=== PATIENT | female | born 1975 | race African-American/Black ===

== ENCOUNTER → 2016-11-15 | Outpatient (CLI) | payer BC, MEDICARE ==
[~2016-11-15] MED LIST: ASP81TEC; ATOR40TA PO; BENA1TAB2 PO; CIPRO PO; HYDROCODONE PO; INSASP10V SQ; INSU100V6 SQ; IRB150T; LISI10TA PO; METR500T PO; SIMV40TA2 PO; SLMFT1E; VYTORIN
--- OUTSIDE RECORDS SUMMARY | 2016-11-15 15:14 | XMS REPORT | Continuity of Care Document ---
Author Author [facility] Organization [facility] Address Unknown Phone Unavailable Allergies Active Description Code Type Severity Reaction Onset Reported/Identified Relationship to Patient Clinical Status Yes NKANo Known Allergies NKA Miscellaneous Allergy Unknown N/ A 04/22/2007 Medications Problems Date Dx Coded Attending Type Code Diagnosis Diagnosed By 08/06/2009 Ot 250.93 08/06/2009 Ot 272.0 08/06/2009 Ot 305.1 08/06/2009 Ot 401.1 08/06/2009 Ot 593.9 11/23/2009 Ot 250.93 11/23/2009 Ot 272.0 11/23/2009 Ot 401.1 11/23/2009 Ot 593.9 11/23/2009 Ot 791.0 10/16/2010 Ot 250.00 10/16/2010 Ot 566 10/16/2010 Ot V58.67 08/15/2013 FELICITY MOORE, VIRIDIANA Davison Ot 250.80 08/15/2013 FELICITY MOORE, VIRIDIANA Davison Ot V58.67 07/15/2014 IRWIN HILARIO APRN Ot 250.81 08/07/2014 Ot 250.93 08/07/2014 Ot 272.0 08/07/2014 Ot 401.1 08/07/2014 Ot 682.9 08/07/2014 Ot 791.0 08/07/2014 Ot V76.12 08/07/2014 Ot 566 08/07/2014 Ot V72.63 08/07/2014 Ot V74.8 10/17/2014 Ot 250.93 10/17/2014 Ot 272.0 10/17/2014 Ot 401.1 10/17/2014 Ot 682.9 10/17/2014 Ot 791.0 10/17/2014 Ot V76.12 10/17/2014 Ot 566 10/17/2014 Ot V72.63 10/17/2014 Ot V74.8 03/01/2015 Ot 250.93 03/01/2015 Ot 272.0 03/01/2015 Ot 401.1 03/01/2015 Ot 682.9 03/01/2015 Ot 791.0 03/01/2015 Ot V76.12 03/01/2015 Ot 566 03/01/2015 Ot V72.63 03/01/2015 Ot V74.8 Procedures Results Encounters ACCT No. Visit Date/Time Discharge Status Pt. Type Provider Facility Loc./Unit Complaint [id number] 07/15/2014 21:02:00 2013 22:30:00 DIS Emergency IRWIN HILARIO APRN [facility] ER [id number] 08/15/2013 02:39:00 2012 03:52:00 DIS Emergency VIRIDIANA BLEVINS MD [facility] ER [id number] 10/16/2010 05:38:00 Document Registration [id number] 10/15/2010 15:04:00 Document Registration [id number] 12/05/2009 10:47:00 Document Registration [id number] 11/27/2009 06:56:00 Document Registration [id number] 08/25/2009 07:05:00 Document Registration [id number] 05/08/2009 07:04:00 Document Registration
--- NOTE | 2016-11-20 11:07 | Diagnostic Imaging Report ---
Bilateral screening mammogram The current study was also evaluated with a Computer Aided Detection (CAD) system. INDICATION: Screening. No current complaints stated on the questionnaire. COMPARISON: 12/05/2009. FINDINGS: The breasts are composed of heterogeneously dense parenchyma which may decrease mammographic sensitivity. There is an oval asymmetry along the upper aspect of the left MLO view. The right breast demonstrate no focal mass. Overall when compared to 2010 exam an overall change in the appearance of the breasts could be related to decreased weight and decreased fat tissue in the breasts. This is a symmetric process. IMPRESSION: Focal compression view and ultrasound evaluation for asymmetry along the upper aspect of the left breast is recommended. ACR BI-RADS Category 0: Incomplete. (Needs additional imaging evaluation). Result letter will be mailed to the patient. Note: At least 10% of breast cancer is not imaged by mammography. Dictated by: Dictated on workstation # [id number]
== END ==
LOC: RAD 15:10
PROVIDERS: ATTEND Internal Medicine
DX: Z12.31 Encounter for screening mammogram for malignant neoplasm of breast (principal)
CPT/HCPCS: 77067

== ENCOUNTER → 2016-11-28 | Outpatient (CLI) | payer BC, MEDICARE ==
--- OUTSIDE RECORDS SUMMARY | 2016-11-28 07:50 | XMS REPORT | Continuity of Care Document ---
Author Author [facility] Organization [facility] Address Unknown Phone Unavailable Allergies Active [...] 10/16/2010 Ot 566 10/16/2010 Ot V58.67 08/15/2013 VIRIDIANA BLEVINS MD Ot 250.80 DIAB W OTH SPEC MANIFEST, TYPE II OR UNS 08/15/2013 VIRIDIANA BLEVINS MD Ot V58.67 LONG-TERM (CURRENT) USE OF INSULIN 07/15/2014 IRWIN HILARIO APRN Ot 250.81 DIAB W OTH SPEC MANIFEST, TYPE I [JUVENI 08/07/2014 Ot 250.93 08/07/2014 Ot 272.0 08/07/2014 [...] 566 03/01/2015 Ot V72.63 03/01/2015 Ot V74.8 11/19/2016 EDGAR BLEVINS MD Ot Z12.31 ENCNTR SCREEN MAMMOGRAM FOR MALIGNANT NE 11/19/2016 EDGAR BLEVINS MD Ot Z12.31 ENCNTR SCREEN MAMMOGRAM FOR MALIGNANT NE 11/21/2016 EDGAR BLEVINS MD Ot Z12.31 ENCNTR SCREEN MAMMOGRAM FOR MALIGNANT NE 11/21/2016 EDGAR BLEVINS MD Ot Z12.31 ENCNTR SCREEN MAMMOGRAM FOR MALIGNANT NE 11/21/2016 EDGAR BLEVINS MD Ot Z12.31 ENCNTR SCREEN MAMMOGRAM FOR MALIGNANT NE 11/22/2016 EDGAR BLEVINS MD Ot Z12.31 ENCNTR SCREEN MAMMOGRAM FOR MALIGNANT NE Procedures Results Encounters ACCT No. Visit Date/Time Discharge Status Pt. Type Provider Facility Loc./Unit Complaint [id number] 07/15/2014 21:02:00 2013 22:30:00 DIS Emergency IRWIN HILARIO APRN [facility] ER LOW BLOOD SUGAR [id number] 08/15/2013 02:39:00 2012 03:52:00 DIS Emergency VIRIDIANA BLEVINS MD [facility] ER LOW BLOOD SUGAR [id number] 11/28/2016 07:47:00 ACT Outpatient EDGAR BLEVINS MD [facility] RAD ABNORMAL MAMMO [id number] 11/15/2016 15:10:00 ACT Outpatient EDGAR BLEVINS MD [facility] RAD SCREENING [id number] 10/16/2010 05:38:00 Document Registration [id number] 10/15/2010 15:04:00 Document Registration [id number] 12/05/2009 10:47:00 Document Registration [id number] 11/27/2009 06:56:00 Document Registration [id number] 08/25/2009 07:05:00 Document Registration [id number] 05/08/2009 07:04:00 Document Registration
--- NOTE | 2016-11-28 21:28 | Diagnostic Imaging Report ---
INDICATION: Abnormal mammogram. EXAMINATION: Ultrasound of the left breast. FINDINGS: The screening mammogram performed on 11/15/16 suggested a small rounded asymmetry in the superior aspect of the breast. This seemed to persist on the diagnostic mammogram performed earlier today. On this exam, there is a 0.6 x 0.5 x 0.6 cm well-circumscribed avascular hypoechoic lesion with some through transmission in the 2 o'clock position of the left breast. This would correspond to the density seen on the mammogram. There are a few internal echoes present and I suspect that this is a small cyst which has been slightly complicated by infection and/or hemorrhage. There are no solid lesions to suggest malignancy. IMPRESSION: There is a small slightly complicated cyst in the 2 o'clock position of the left breast. This would correspond to the finding of the mammogram. This suspected cyst is most likely benign but a six-month followup exam would be recommended for continued evaluation. ACR BI-RADS Category 3: Probably benign findings. Result letter will be mailed to the patient. Note: At least 10% of breast cancer is not imaged by mammography. Dictated by: Dictated on workstation # [id number]
--- NOTE | 2016-11-28 21:53 | Diagnostic Imaging Report ---
INDICATION: Abnormal screening mammogram. EXAMINATION: Left breast digital diagnostic mammogram with CAD. The current study was also evaluated with a Computer Aided Detection (CAD) system. FINDINGS: The screening mammogram performed 11/15/16 noted a small rounded asymmetry in the superior aspect of the left breast. That density is not as conspicuous on the compression view but seems to persist on the MLO view. I would recommend that ultrasound of the left breast be performed for further study. IMPRESSION: Ultrasound would be recommended for further evaluation of the small rounded density in the superior aspect of the left breast. ACR BI-RADS Category 0: Incomplete. (Needs additional imaging evaluation). Result letter will be mailed to the patient. Note: At least 10% of breast cancer is not imaged by mammography. Dictated by: Dictated on workstation # [id number]
== END ==
LOC: RAD 07:47
PROVIDERS: ATTEND Internal Medicine
DX: R92.8 Other abnormal and inconclusive findings on diagnostic imaging of breast (principal)
CPT/HCPCS: 76642

== ENCOUNTER → 2017-04-08 | Outpatient (CLI) | payer BC, MEDICARE ==
[~2017-04-08] MED LIST changes: +AMLO10TA2 PO; +INSU100V16 SQ; +METO-395 PO; +SEVE800T7 PO
== END ==
LOC: CARD 08:49
PROVIDERS: ATTEND Internal Medicine Cardiovascular Disease
DX: E78.2 Mixed hyperlipidemia (principal); I12.0 Hypertensive chronic kidney disease with stage 5 chronic kidney disease or end stage renal disease; N18.6 End stage renal disease; D63.8 Anemia in other chronic diseases classified elsewhere
CPT/HCPCS: 93306

== ENCOUNTER → 2017-04-29 | Outpatient (CLI) | payer BC, MEDICARE ==
[~2017-04-29] MED LIST changes: -AMLO10TA2 PO; +CATHETER FLUSH 10 ML SYR IV PRN; -INSU100V16 SQ; -METO-395 PO; +REGADENOSON 0.4 MG/5 ML SYR (LEXISCAN) IV ONE; -SEVE800T7 PO
[2017-04-29 13:11] VITALS: BP 143/74
--- NOTE | 2017-04-30 07:04 | STRESS TEST ---
DATE OF SERVICE: 04/29/2017 RESTING AND POST-REGADENOSON TECHNETIUM-[address] IMAGING ORDERING PHYSICIAN: Dr. Stewart. PRIMARY PHYSICIAN: Dr. Quintero. CLINICAL DIAGNOSIS: 372.83. Baseline images were carried out after injection of 10.5 mCi of technetium-99 tetrofosmin. This was followed by 0.4 mg regadenoson and 28.5 mCi of technetium-99 tetrofosmin for stress imaging. The electrocardiogram showed sinus rhythm at baseline and it did not change significantly with regadenoson infusion. The patient tolerated the procedure well. Review of images at rest and following stress did not indicate any significant perfusion defects consistent with significant myocardial ischemia or infarction. Gated images show normal global left ventricular systolic function with normal regional wall motion. Left ventricular ejection fraction is calculated to be 71%. Left ventricular end-diastolic volume is 94 mL. TID is absent (0.97). CONCLUSIONS: 1. No evidence of any significant myocardial ischemia or infarction on this study. 2. Normal regional wall motion. 3. Normal global left ventricular systolic function with a calculated ejection fraction of 71%. Job ID: [id number] DocumentID: [id number] Dictated Date: 04/29/2017 14:58:43 Advisory Software Engineer Date: 04/30/2017 02:05:46 Dictated By: ELISABETH MACHUCA MD, MA, FACP, FACC,
== END ==
LOC: CARD 11:34
PROVIDERS: ATTEND Specialist
DX: Z01.810 Encounter for preprocedural cardiovascular examination (principal); N18.6 End stage renal disease
CPT/HCPCS: 78452; 93017

== ENCOUNTER 2017-05-15 13:12 | Day surgery (SDC) | payer BC, MEDICARE ==
[2017-05-15] VITALS (7 sets, daily range): BP systolic 111–140; BP diastolic 73–83
[~2017-05-15] VITALS: Ht 165.1 cm; Wt 80.7 kg
[~2017-05-15 13:12] MED LIST changes: -CATHETER FLUSH 10 ML SYR IV PRN; -REGADENOSON 0.4 MG/5 ML SYR (LEXISCAN) IV ONE
[2017-05-15] MEDS ORDERED: NS IV 1000 ML 1,000 ML ONE (13:16)
[2017-05-15] MEDS ORDERED: HEParin (CATH LAB) 2,000 ML IV ONE (13:16)
--- OUTSIDE RECORDS SUMMARY | 2017-05-15 13:16 | XMS REPORT | Continuity of Care Document ---
Author Author [employer] Organization [facility] Address Unknown Phone Unavailable Care Team Providers Care Manager Print Name Role Phone [employer] Unavailable Unavailable Problems Medications Allergies, Adverse Reactions, Alerts Immunizations Results Vital Signs Encounters Location Location Details Encounter Type Encounter Number Reason For Visit Attending Provider ADM Date DC Date Status Source O Active [facility] Procedures Plan of Care Social History Assessment and Plan Family History Value Date Source Advance Directives Order Name Results Value Date Source
--- OUTSIDE RECORDS SUMMARY | 2017-05-15 13:17 | XMS REPORT | Clinical Summary ---
Author Author [facility] Organization [facility] Address Unknown Phone Unavailable Care Team Providers Care Job Site Supervisor Name Role Phone PCP Unavailable Source Comments Some departments are not documenting in the electronic medical record. If you do not see the information that you expected, contact Release of Information in the Health Information Management department at [phone] for further assistance in locating additional records.[facility] Allergies No Known Allergies Current Medications Prescription Sig. Disp. Refills Start End Date Status Date amLODIPine (NORVASC) 10 Take 10 mg by mouth Active mg tablet daily. Sevelamer Carbonate Take 4 tablets with meals Active (RENVELA) 800 mg tab and 2 with snacks insulin glargine (LANTUS Inject 15 Units under the Active SOLOSTAR) 100 unit/mL (3 skin at bedtime daily. mL) injection PEN metoprolol XL (TOPROL XL) Take 100 mg by mouth Active 100 mg extended release daily. tablet insulin aspart (NOVOLOG Inject 10 Units under the Active FLEXPEN) 100 unit/mL skin three times daily injection PEN with meals. With sliding scale epoetin beta, methoxy peg Inject 100 mcg to area(s) Active (MIRCERA) 100 mcg/0.3 mL as directed every 14 syrg days. At dialysis iron sucrose (VENOFER) 50 Administer 50 mg through Active mg iron/2.5 mL soln vein every 7 days. At dialysis calcitriol (ROCALTROL) Take 0.5 mcg by mouth Active 0.5 mcg capsule three times weekly. MWF at dialysis acetaminophen (TYLENOL) Take 500 mg by mouth Active 500 mg tablet every 6 hours as needed for Pain. Max of 4,000 mg of acetaminophen in 24 hours. prednisolone acetate Apply 1 Drop to left eye Active (PRED FORTE) 1 % as directed four times ophthalmic suspension daily. apraclonidine (IOPIDINE) Apply 1 Drop to left eye Active 0.5 % ophthalmic solution as directed four times daily. homatropine 5 % Apply 1 Drop to left eye Active ophthalmic solution as directed at bedtime daily. dorzolamide-timolol(+) Apply 1 Drop to left eye Active (COSOPT) 2-0.5 % as directed twice daily. ophthalmic solution Active Problems Problem Noted Date ESRD (end stage renal disease) (FORM[facility]) 03/30/2017 Encounters Date Type Specialty Care Team Description 05/08/2017 Telephone Transplant Surgery Yeny Vivas RN Committee Review 05/06/2017 Telephone Transplant Surgery Yeny Vivas RN Kidney Evaluation 05/06/2017 Telephone Transplant Surgery Yeny Vivas RN Financial/Insurance Questions 05/06/2017 Telephone Transplant Surgery Yeny Vivas RN Financial/Insurance Questions 04/30/2017 Telephone Transplant Surgery Yeny Vivas RN Kidney Evaluation 04/30/2017 Documentation Transplant Surgery Yeny Vivas RN 04/24/2017 Documentation Transplant Surgery Abena Weeks MA 04/23/2017 Telephone Transplant Surgery Yeny Vivas RN Financial/Insurance Questions 04/22/2017 Telephone Transplant Surgery Yeny Vivas RN Kidney Evaluation 04/21/2017 Telephone Transplant Surgery Solange Benavides Financial/ Insurance Questions (BENEFITS / INSRUANCE INFORMATION ) 04/21/2017 Telephone Transplant Surgery Solange Benavides Financial/ Insurance Questions (BENEFITS / INSURANCE INFORMATION ) 04/16/2017 Telephone Transplant Surgery Solange Benavides Financial/ Insurance Questions (BENEFITS / INSURANCE INFORMATION ) 04/15/2017 Documentation Transplant Surgery Yeny Vivas RN 04/07/2017 Documentation Transplant Surgery Abena Weeks MA 04/07/2017 Documentation Transplant Surgery Abena Weeks MA 04/07/2017 Documentation Transplant Surgery Abena Weeks MA 03/31/2017 Telephone Transplant Surgery Yeny Vivas RN Kidney Evaluation 03/20/2017 Documentation Transplant Surgery Abena Weeks MA 03/05/2017 Documentation Transplant Surgery Melissa Kinsey 03/04/2017 [facility] Radiology Efrain Vargas MD Encounter 03/04/2017 [facility] Efrain Millan MD Encounter 03/04/2017 [facility] Milly Stewart MD Encounter for other Encounter preprocedural examination 03/04/2017 Transplant Transplant Surgery Evgeny Kathleen MD Pre- transplant evaluation Evaluation Sher Sumner MD for kidney transplant (Primary Dx) 03/04/2017 Office Visit Transplant Surgery Milly Stewart MD Pre- transplant evaluation for end stage renal disease (Primary Dx);Pre-kidney transplant, listed;Screening for human immunodeficiency virus;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);Coagulation defect (HCC);ESRD (end stage renal disease) (HCC) 03/03/2017 Documentation Transplant Surgery Melissa Kinsey 02/25/2017 Telephone Transplant Surgery Helen Eastman MA Appointment Question from Last 3 Months Social History Tobacco Use Types Packs/Day Years Used Date Former Smoker Cigarettes Alcohol Use Drinks/Week oz/Week Comments No 0 Standard 0.0 drinks or equivalent Sex Assigned at Date Recorded Not on file Last Filed Vital Signs Vital Sign Reading Time Taken Blood Pressure 107/57 03/04/2017 9:23 AM CDT Pulse 54 03/04/2017 9:23 AM CDT Temperature 36.4 C (97.5 F) 03/04/2017 9:22 AM CDT Respiratory Rate - - Oxygen Saturation 100% 03/04/2017 9:22 AM CDT Inhaled Oxygen - - Concentration Weight 77.7 kg (171 lb 3.2 oz) 03/04/2017 9:22 AM CDT Height 162.6 cm (5' 4") 03/04/2017 9:22 AM CDT Body Mass Index 29.39 03/04/2017 9:22 AM CDT Plan of Treatment Health Maintenance Due Date Last Done Comments PHYSICAL (COMPREHENSIVE) 1983 EXAM PERTUSSIS VACCINE 1987 TETANUS VACCINE 1993 DILATED EYE EXAM 1994 FOOT EXAM 1994 MICROALBUMIN 1994 PNEUMONIA VACCINE (DM) 1994 CERVICAL CANCER SCREENING 2006 BREAST CANCER SCREENING 2016 INFLUENZA VACCINE 05/23/2017 HBA1C 09/03/2017 03/04/2017 Results * CHEST 2 VIEWS (03/04/2017 1:54 PM) Specimen Performing Laboratory [facility] RESULTS Impressions No radiographic evidence of acute cardiopulmonary disease. Finalized by Cassandra Murray M.D. on 03/04/2017 1:59 PM. Dictated by Cassandra Murray M.D. on 03/04/2017 1:58 PM. Narrative CHEST 2 VIEWS Indication: pre-kidney/pancreas transplant evaluation. Comparison: There are no prior studies for direct comparison. Findings: The heart and pulmonary vasculature are unremarkable. The lungs appear well- aerated. No consolidative infiltrate, pleural effusion or pneumothorax is identified. The visualized osseous structures are unremarkable. Procedure Note Interface, Radiant Results - 03/04/2017 2:02 PM CDT CHEST 2 VIEWS Indication: pre-kidney/pancreas transplant evaluation. Comparison: There are no prior studies for direct comparison. Findings: The heart and pulmonary vasculature are unremarkable. The lungs appear well- aerated. No consolidative infiltrate, pleural effusion or pneumothorax is identified. The visualized osseous structures are unremarkable. IMPRESSION No radiographic evidence of acute cardiopulmonary disease. Finalized by Cassandra Murray M.D. on 03/04/2017 1:59 PM. Dictated by Cassandra Murray M.D. on 03/04/2017 1:58 PM. * CT ABD/PELV WO CONTRAST (03/04/2017 1:45 PM) Specimen Performing Laboratory [facility] RESULTS Impressions 1. No aortoiliac aneurysm or significant calcification. Soft plaque and vessel patency are not assessed in the absence of IV contrast. 2. Punctate nonobstructing right renal calculi. Approved by Natalie Sandhu M.D. on 03/04/2017 2:17 PM By my electronic signature, I attest that I have personally reviewed the images for this examination and formulated the interpretations and opinions expressed in this report Finalized by Vinnie Kidd M.D. on 03/04/2017 4:37 PM. Dictated by Natalie Sandhu M.D. on 03/04/2017 2:[address] ABDOMEN AND PELVIS Clinical Indication: Pre- kidney/pancreas transplant evaluation Technique: Multiple contiguous axial CT images were obtained through the abdomen and pelvis without IV contrast. Post processing coronal and sagittal reconstruction images were made from the axial images. IV contrast: None. Bowel contrast:None Comparison: None FINDINGS: Limited evaluation of the viscera and vasculature in the absence of IV contrast. Lower Thorax: Heart size is upper limits of normal. There is low-density of the cardiac blood pool relative to the myocardium suggesting anemia. Liver and Biliary system: Normal sized liver. The gallbladder is contracted. No radiopaque gallbladder calculi. Spleen: Unremarkable. Adrenal Glands and Kidneys: Mild nonspecific thickening of the left adrenal gland. Right adrenal gland is unremarkable. Mild bilateral ak chin renal atrophy. No hydronephrosis. Few punctate nonobstructing right renal calculi. Pancreas and Retroperitoneum: The unopacified pancreas is grossly unremarkable. Scattered upper normal retroperitoneal lymph nodes. Aorta and Major Vessels: Normal caliber abdominal aorta. No significant aortic or common iliac artery calcification. Minimal peripheral calcification in the distal left external iliac artery. Vessel patency and soft plaque are not assessed in the absence of contrast. There is mild diffuse calcification of medium-sized arteries in the abdomen and pelvis. Bowel, Mesentery, and Peritoneal space: Loops of large and small bowel are normal caliber. Mild mesenteric congestion. No ascites, free air, or intraperitoneal fluid collection. Pelvis: The partially filled urinary bladder is grossly unremarkable. The uterus is normal in size. Abdominal wall and Osseous Structures: No aggressive osseous lesion. Procedure Note Interface, Radiant Results - 03/04/2017 4:[address] ABDOMEN AND PELVIS Clinical Indication: Pre- kidney/pancreas transplant evaluation Technique: Multiple contiguous axial CT images were obtained through the abdomen and pelvis without IV contrast. Post processing coronal and sagittal reconstruction images were made from the axial images. IV contrast: None. Bowel contrast: None Comparison: None FINDINGS: Limited evaluation of the viscera and vasculature in the absence of IV contrast. Lower Thorax: Heart size is upper limits of normal. There is low-density of the cardiac blood pool relative to the myocardium suggesting anemia. Liver and Biliary system: Normal sized liver. The gallbladder is contracted. No radiopaque gallbladder calculi. Spleen: Unremarkable. Adrenal Glands and Kidneys: Mild nonspecific thickening of the left adrenal gland. Right adrenal gland is unremarkable. Mild bilateral ak chin renal atrophy. No hydronephrosis. Few punctate nonobstructing right renal calculi. Pancreas and Retroperitoneum: The unopacified pancreas is grossly unremarkable. Scattered upper normal retroperitoneal lymph nodes. Aorta and Major Vessels: Normal caliber abdominal aorta. No significant aortic or common iliac artery calcification. Minimal peripheral calcification in the distal left external iliac artery. Vessel patency and soft plaque are not assessed in the absence of contrast. There is mild diffuse calcification of medium-sized arteries in the abdomen and pelvis. Bowel, Mesentery, and Peritoneal space: Loops of large and small bowel are normal caliber. Mild mesenteric congestion. No ascites, free air, or intraperitoneal fluid collection. Pelvis: The partially filled urinary bladder is grossly unremarkable. The uterus is normal in size. Abdominal wall and Osseous Structures: No aggressive osseous lesion. IMPRESSION 1. No aortoiliac aneurysm or significant calcification. Soft plaque and vessel patency are not assessed in the absence of IV contrast. 2. Punctate nonobstructing right renal calculi. Approved by Natalie Sandhu M.D. on 03/04/2017 2:17 PM By my electronic signature, I attest that I have personally reviewed the images for this examination and formulated the interpretations and opinions expressed in this report Finalized by Vinnie Kidd M.D. on 03/04/2017 4:37 PM. Dictated by Natalie Sandhu M.D. on 03/04/2017 2:03 PM. * BLOOD TYPE CONFIRMATION - ORDER ONLY IF REQUESTED BY LAB (03/04/2017 1:02 PM) Component Value Ref Range ABO/RH(D) A POS Specimen Performing Laboratory Blood MAIN LAB [address] [place] [address] * RED TOP TUBE FOR MTN TRANSPLANT (03/04/2017 12:48 PM) Specimen Performing Laboratory Blood REFERENCE LAB * HIV AB SCREEN(1 AND 2) (03/04/2017 12:48 PM) Component Value Ref Range HIV 1 and 2 AG AB Screen NEG NEG-NEG Specimen Performing Laboratory Blood MAIN LAB [address] [place] [address] * SYPHILIS AB SCREEN (03/04/2017 12:48 PM) Component Value Ref Range Syphilis AB, Total NEG NEG-NEG Comment: Negative EIA: Negative results indicate no past or present syphilis infection. Early infection can not be excluded. Specimen Performing Laboratory Blood MAIN LAB [address] [place] [address] * ABO/RH(D) (03/04/2017 12:48 PM) Component Value Ref Range ABO/RH(D) A POS Specimen Performing Laboratory Blood MAIN LAB [address] [place] [address] * URINALYSIS, MICROSCOPIC (03/04/2017 12:48 PM) Component Value Ref Range WBCs,UA 2-10 0 - 2 /HPF RBCs,UA 0-2 0 - 3 /HPF MucousUA TRACE Bacteria,UA FEW (A) NEG-NEG Squamous Epithelial Cells 10-20 0 - 5 Hyaline Cast 5-10 Specimen Performing Laboratory Urine [facility] LAB [address] [place] [address] * URINALYSIS DIPSTICK (03/04/2017 12:48 PM) Component Value Ref Range Color,UA YELLOW Turbidity,UA 1+ (A) CLEAR-CLEAR Specific [place]-Urine 1.019 1.003 - 1.035 pH,UA 6.0 5.0 - 8.0 Protein,UA 3+ (A) NEG-NEG Glucose,UA 1+ (A) NEG-NEG Ketones,UA NEG NEG-NEG Bilirubin,UA NEG NEG-NEG Blood,UA NEG NEG-NEG Urobilinogen,UA NORMAL NORM-NORMAL Nitrite,UA NEG NEG-NEG Leukocytes,UA TRACE (A) NEG-NEG Urine Ascorbic Acid, UA NEG NEG-NEG Specimen Performing Laboratory Urine [facility] LAB [address] [place] [address] * PHENCYCLIDINES-URINE RANDOM (03/04/2017 12:48 PM) Component Value Ref Range Phencyclidine (PCP) NEG NEG-NEG Comment: RESULTS WERE OBTAINED BY IMMUNOASSAY AND ARE PRESUMPTIVE ONLY. POSITIVE INDICATES THE PRESENCE OF SUBSTANCE WITH CHARACTERISTICS SIMILAR TO DRUG-DRUG CLASS OR METABOLITE IN CONC. EQUAL TO OR EXCEEDING VALUES LISTED. PHENCYCLIDINE (PCP) 25 NG/ML Specimen Performing Laboratory Urine [facility] LAB [address] [place] [address] * OPIATES-URINE RANDOM (03/04/2017 12:48 PM) Component Value Ref Range Opiates-Urine NEG NEG-NEG Comment: RESULTS WERE OBTAINED BY IMMUNOASSAY AND ARE PRESUMPTIVE ONLY. POSITIVE INDICATES THE PRESENCE OF SUBSTANCE WITH CHARACTERISTICS SIMILAR TO DRUG-DRUG CLASS OR METABOLITE IN CONC. EQUAL TO OR EXCEEDING VALUES LISTED. OPIATES 200 0 NG/ML Specimen Performing Laboratory Urine [facility] LAB [address] [place] [phone] * COCAINE-URINE RANDOM (03/04/2017 12:48 PM) Component Value Ref Range Cocaine-Urine NEG NEG-NEG Comment: RESULTS WERE OBTAINED BY IMMUNOASSAY AND ARE PRESUMPTIVE ONLY. POSITIVE INDICATES THE PRESENCE OF SUBSTANCE WITH CHARACTERISTICS SIMILAR TO DRUG-DRUG CLASS OR METABOLITE IN CONC. EQUAL TO OR EXCEEDING VALUES LISTED. COCAINE 300 NG/ML Specimen Performing Laboratory Urine [facility] LAB [address] [place] [address] * CANNABINOIDS-URINE RANDOM (03/04/2017 12:48 PM) Component Value Ref Range THC NEG NEG-NEG Comment: RESULTS WERE OBTAINED BY IMMUNOASSAY AND ARE PRESUMPTIVE ONLY. POSITIVE INDICATES THE PRESENCE OF SUBSTANCE WITH CHARACTERISTICS SIMILAR TO DRUG-DRUG CLASS OR METABOLITE IN CONC. EQUAL TO OR EXCEEDING VALUES LISTED. CANNABINOIDS 50 NG/ML Specimen Performing Laboratory Urine [facility] LAB [address] [place] [address] * BENZODIAZEPINES-URINE RANDOM (03/04/2017 12:48 PM) Component Value Ref Range Benzodiazepines NEG NEG-NEG Comment: RESULTS WERE OBTAINED BY IMMUNOASSAY AND ARE PRESUMPTIVE ONLY. POSITIVE INDICATES THE PRESENCE OF SUBSTANCE WITH CHARACTERISTICS SIMILAR TO DRUG-DRUG CLASS OR METABOLITE IN CONC. EQUAL TO OR EXCEEDING VALUES LISTED. BENZODIAZEPINES 200 NG/ML Specimen Performing Laboratory Urine [facility] LAB [address] [place] [address] * BARBITURATES-URINE RANDOM (03/04/2017 12:48 PM) Component Value Ref Range Barbiturates,Urine NEG NEG-NEG Comment: RESULTS WERE OBTAINED BY IMMUNOASSAY AND ARE PRESUMPTIVE ONLY. POSITIVE INDICATES THE PRESENCE OF SUBSTANCE WITH CHARACTERISTICS SIMILAR TO DRUG-DRUG CLASS OR METABOLITE IN CONC. EQUAL TO OR EXCEEDING VALUES LISTED. BARBITURATES 200 NG/ML Specimen Performing Laboratory Urine [address] [address] * AMPHETAMINES-URINE RANDOM (03/04/2017 12:48 PM) Component Value Ref Range Amphetamines NEG NEG-NEG Comment: RESULTS WERE OBTAINED BY IMMUNOASSAY AND ARE PRESUMPTIVE ONLY. POSITIVE INDICATES THE PRESENCE OF SUBSTANCE WITH CHARACTERISTICS SIMILAR TO DRUG-DRUG CLASS OR METABOLITE IN CONC. EQUAL TO OR EXCEEDING VALUES LISTED. AMPHETAMINES 1000 NG/ML Specimen Performing Laboratory Urine [facility] LAB [address] [place] [address] * HSV I/II GLYCOPROTEIN G AB (03/04/2017 12:48 PM) Component Value Ref Range HSV Type 1 IgG POS (A) NEG-NEG HSV Type 2 IgG EQUIVOCAL, PLEASE SUBMIT ANOTHER SPECIMEN IN 4-6 NEG-NEG WEEKS (A) Specimen Performing Laboratory Blood [facility] LAB [address] [place] [address] * HEPATITIS C AB (03/04/2017 12:48 PM) Component Value Ref Range Anti HCV NEG Specimen Performing Laboratory Blood [facility] LAB [address] [place] [address] * HEPATITIS B CORE AB TOT (IGG+IGM) (03/04/2017 12:48 PM) Component Value Ref Range Anti HBc Total NEG Specimen Performing Laboratory Blood MAIN LAB [address] [place] [address] * HEPATITIS B SURFACE AG (03/04/2017 12:48 PM) Component Value Ref Range HBsAg NEG Specimen Performing Laboratory Blood MAIN LAB [address] [place] [address] * HEPATITIS B SURFACE AB (03/04/2017 12:48 PM) Component Value Ref Range Anti HBs >1000.0 mIU/ml Comment: Hepatitis B Surface Antibody Reference Ranges >12.0 Positive 8.0-12.0 Equivocal <8.0 Negative Specimen Performing Laboratory Blood MAIN LAB [address] [place] [address] * ROLAND TURCIOS PANEL(EBV) (03/04/2017 12:48 PM) Component Value Ref Range EBV Capsid IgG POS EBV Nuclear Ag,Ab POS EBV Early Ag,Ab NEG EBV Capsid IgM NEG Specimen Performing Laboratory Blood MAIN LAB [address] [place] [address] * C-PEPTIDE (03/04/2017 12:48 PM) Component Value Ref Range C-Peptide 0.5 (L) Comment: Reference range: 1.1 to 4.4 Unit: ng/mL [facility], [address] [place] [address] Specimen Performing Laboratory Blood REFERENCE LAB * CMV AB IGM (03/04/2017 12:48 PM) Component Value Ref Range CMV, IgM NEG Specimen Performing Laboratory Blood MAIN LAB [address] [place] [address] * CMV AB IGG (03/04/2017 12:48 PM) Component Value Ref Range CMV, IgG POS Specimen Performing Laboratory Blood MAIN LAB [address] [place] [address] * LAVENDER (EDTA) TOP TUBE FOR MTN TRANSPLANT (03/04/2017 12:48 PM) Specimen Performing Laboratory Blood REFERENCE LAB * PROTIME INR (PT) (03/04/2017 12:48 PM) Component Value Ref Range INR 1.0 0.8 - 1.2 Specimen Performing Laboratory Blood MAIN LAB [address] [place] [address] * CBC AND DIFF (03/04/2017 12:48 PM) Component Value Ref Range White Blood Cells 7.6 4.5 - 11.0 K/UL RBC 3.85 (L) 4.0 - 5.0 M/UL Hemoglobin 12.0 12.0 - 15.0 GM/DL Hematocrit 36.3 36 - 45 % MCV 94.1 80 - 100 FL MCH 31.2 26 - 34 PG MCHC 33.1 32.0 - 36.0 G/DL RDW 17.8 (H) 11 - 15 % Platelet Count 326 150 - 400 K/UL MPV 7.6 7 - 11 FL Neutrophils 51 41 - 77 % Lymphocytes 37 24 - 44 % Monocytes 10 4 - 12 % Eosinophils 1 0 - 5 % Basophils 1 0 - 2 % Absolute Neutrophil Count 3.90 1.8 - 7.0 K/UL Absolute Lymph Count 2.80 1.0 - 4.8 K/UL Absolute Monocyte Count 0.80 0 - 0.80 K/UL Absolute Eosinophil Count 0.10 0 - 0.45 K/UL Absolute Basophil Count 0.10 0 - 0.20 K/UL Specimen Performing Laboratory Blood MAIN LAB [address] [place] [address] * PHOSPHORUS (03/04/2017 12:48 PM) Component Value Ref Range Phosphorus 3.6 2.0 - 4.0 MG/DL Specimen Performing Laboratory Blood MAIN LAB [address] [place] [address] * HEMOGLOBIN A1C (03/04/2017 12:48 PM) Component Value Ref Range Hemoglobin A1C 7.2 (H) 4.0 - 6.0 % Comment: The ADA recommends that most patients with type 1 and type 2 diabetes maintain an A1c level <7%. Specimen Performing Laboratory Blood MAIN LAB [address] [place] [address] * COMPREHENSIVE METABOLIC PANEL (03/04/2017 12:48 PM) Component Value Ref Range Sodium 137 137 - 147 MMOL/L Potassium 3.8 3.5 - 5.1 MMOL/L Chloride 92 (L) 98 - 110 MMOL/L Glucose 53 (L) 70 - 100 MG/DL Blood Urea Nitrogen 24 7 - 25 MG/DL Creatinine 8.77 (H) 0.4 - 1.00 MG/DL Calcium 10.1 8.5 - 10.6 MG/DL Total Protein 9.0 (H) 6.0 - 8.0 G/DL Total Bilirubin 0.5 0.3 - 1.2 MG/DL Albumin 4.9 3.5 - 5.0 G/DL Alk Phosphatase 131 (H) 25 - 110 U/L AST (SGOT) 15 7 - 40 U/L CO2 37 (H) 21 - 30 MMOL/L ALT (SGPT) 10 7 - 56 U/L Anion Gap 8 3 - 12 eGFR Non 5 (L) >60 mL/min Comment: The eGFR is not validated for use in drug dosing adjustments. Continue to use estimated creatinine clearance per dosing reference text. Please contact the Clinical Pharmacist for questions. eGFR 6 (L) >60 mL/min Comment: The eGFR is not validated for use in drug dosing adjustments. Continue to use estimated creatinine clearance per dosing reference text. Please contact the Clinical Pharmacist for questions. Specimen Performing Laboratory Blood [facility] [address] [place] [address] from Last 3 Months
--- OUTSIDE RECORDS SUMMARY | 2017-05-15 13:17 | XMS REPORT | Encounter Summary ---
Author Author [facility] Organization [facility] Address Unknown Phone Unavailable Care Team Providers Care Oil Well Gun Perforator Operator Name Role Phone PCP Unavailable Reason for Visit * Reason Comments Committee Review Encounter Details Date Type Department Care Team Description 05/08/2017 Telephone Center Yeny Tovar RN Committee Review Transplantation-Kidney/Pa ncreas [facility] [address] [facility] [place] [address] Social History Tobacco Use Types Packs/Day Years Used Date Former Smoker Cigarettes Alcohol Use Drinks/Week oz/Week Comments No 0 Standard 0.0 drinks or equivalent Sex Assigned at Date Recorded Not on file as of this encounter Functional Status Functional Status Response Date of Assessment Does the patient have a hearing impairment: No 03/04/2017 Does the patient have a visual impairment: Yes 03/04/2017 Does the patient have impaired ambulation: No 03/04/2017 Does the patient have an activity of daily living No 03/04/2017 (ADL) impairment: Does the patient have an instrumental activity of No 03/04/2017 daily living (IADL) impairment: Cognitive Status Response Date of Assessment Does the patient have a cognitive impairment: No 03/04/2017 as of this encounter Plan of Treatment Not on fileas of this encounter Visit Diagnoses Not on filein this encounter
--- OUTSIDE RECORDS SUMMARY | 2017-05-15 13:17 | XMS REPORT | Encounter Summary ---
Author Author [facility] Organization [facility] Address Unknown Phone Unavailable Care Team Providers Care Wedger Name Role Phone PCP Unavailable Reason for Visit * Reason Comments Financial/Insurance Questions Encounter Details Date Type Department Care Team Description 05/06/2017 Telephone Center Yeny Tovar RN Financial/ Insurance Transplantation-Kidney/Pa Questions ncreas [facility] [address] [facility] [place] [address] Social History Tobacco Use Types Packs/Day Years [...]
--- OUTSIDE RECORDS SUMMARY | 2017-05-15 13:17 | XMS REPORT | Encounter Summary ---
Author Author [facility] Organization [facility] Address Unknown Phone Unavailable Care Team Providers Care Timber Poisoner Name Role Phone PCP Unavailable Reason for Visit * Reason Comments Financial/Insurance Questions Encounter Details Date Type Department Care Team Description 05/06/2017 Telephone Center Yeny Tovar RN Financial/ Insurance Transplantation-Kidney/Pa Questions ncreas [facility] [address] [facility] [place] [address] Social History Tobacco Use Types Packs/Day Years [...]
--- OUTSIDE RECORDS SUMMARY | 2017-05-15 13:17 | XMS REPORT | Encounter Summary ---
Author Author [facility] Organization [facility] Address Unknown Phone Unavailable Care Team Providers Care Inspector Ball Points Name Role Phone PCP Unavailable Reason for Visit * Reason Comments Kidney Evaluation Encounter Details Date Type Department Care Team Description 05/06/2017 Telephone Center Yeny Tovar RN Kidney Evaluation [facility] [address] [facility] [place] [address] Social History Tobacco Use Types Packs/Day Years [...]
--- OUTSIDE RECORDS SUMMARY | 2017-05-15 13:18 | XMS REPORT | Encounter Summary ---
Author Author [facility] Organization [facility] Address Unknown Phone Unavailable Care Team Providers Care Jeweler Apprentice Name Role Phone PCP Unavailable Reason for Visit * Reason Comments Financial/Insurance BENEFITS / INSURANCE INFORMATION Questions Encounter Details Date Type Department Care Team Description 04/21/2017 Telephone Center for Solange Benavides Financial/Insurance Transplantation-Liver Questions (BENEFITS / Transplant Hep INSURANCE INFORMATION ) [address] [facility] [place] [address] Social History Tobacco Use Types Packs/Day Years [...]
--- OUTSIDE RECORDS SUMMARY | 2017-05-15 13:18 | XMS REPORT | Encounter Summary ---
Author Author [facility] Organization [facility] Address Unknown Phone Unavailable Care Team Providers Care Veneer Jointer Returner Name Role Phone PCP Unavailable Encounter Details Date Type Department Care Team Description 04/24/2017 Documentation Center for Abena Weeks MA Transplantation-Kidney/Pa ncreas Nep [address] [facility] [place] [address] Social History Tobacco Use Types Packs/Day Years [...] impairment: No 03/04/2017 as of this encounter Progress Notes * Abena Weeks MA - 04/24/2017 10:00 AM CDT Scheduled pts stress test at [facility] 04/29/17 at 1145. LM for pt with appt info. in this encounter Plan of Treatment Not on fileas of this encounter Visit Diagnoses Not on filein this encounter
--- OUTSIDE RECORDS SUMMARY | 2017-05-15 13:18 | XMS REPORT | Encounter Summary ---
Author Author [facility] Organization [facility] Address Unknown Phone Unavailable Care Team Providers Care Unit Secy Name Role Phone PCP Unavailable Reason for Visit * Reason Comments Financial/Insurance BENEFITS / INSURANCE INFORMATION Questions Encounter Details Date Type Department Care Team Description 04/16/2017 Telephone Center for Solange Benavides Financial/Insurance Transplantation-Liver Questions (BENEFITS / Transplant Hep INSURANCE INFORMATION ) [address] [facility] [place] [address] Social History Tobacco Use Types Packs/Day Years [...]
--- OUTSIDE RECORDS SUMMARY | 2017-05-15 13:18 | XMS REPORT | Encounter Summary ---
Author Author [facility] Organization [facility] Address Unknown Phone Unavailable Care Team Providers Care Horticultural Nursery Assistant Name Role Phone PCP Unavailable Encounter Details Date Type Department Care Team Description 04/30/2017 Documentation Center for Yeny Vivas RN Transplantation-Kidney/Pa ncreas Nep [address] [facility] [place], [place] [id number] Social History Tobacco Use Types Packs/Day Years [...] as of this encounter Progress Notes * Yeny Vivas, RN - 04/30/2017 8:54 AM CDT Requested results of stress test and also endo lab results. Will attempt to present next week. in this encounter Plan of Treatment Not on fileas of this encounter Visit Diagnoses Not on filein this encounter
--- OUTSIDE RECORDS SUMMARY | 2017-05-15 13:18 | XMS REPORT | Encounter Summary ---
Author Author [facility] Organization [facility] Address Unknown Phone Unavailable Care Team Providers Care Accounting Supervisor Name Role Phone PCP Unavailable Encounter Details Date Type Department Care Team Description 04/07/2017 Documentation Center for Abena Weeks MA Transplantation-Kidney/Pa ncreas Nep [address] [facility] [place] [address] Social History Tobacco Use Types Packs/Day Years [...] Progress Notes * Abena Weeks MA - 04/07/2017 2:14 PM CDT Spoke with pt, confirmed the following tests scheduled at [facility]: 04/08/17 - echo 04/22/17 - stress test in this encounter Plan of Treatment Not on fileas of this encounter Visit Diagnoses Not on filein this encounter
--- OUTSIDE RECORDS SUMMARY | 2017-05-15 13:18 | XMS REPORT | Encounter Summary ---
Author Author [facility] Organization [facility] Address Unknown Phone Unavailable Care Team Providers Care Photogrammetry Airplane Pilot Name Role Phone PCP Unavailable Reason for Visit * Reason Comments Financial/Insurance BENEFITS / INSRUANCE INFORMATION Questions Encounter Details Date Type Department Care Team Description 04/21/2017 Telephone Center for Solange Benavides Financial/Insurance Transplantation-Liver Questions (BENEFITS / Transplant Hep INSRUANCE INFORMATION ) [address] [facility] [place] [address] Social History Tobacco Use Types Packs/Day Years [...]
--- OUTSIDE RECORDS SUMMARY | 2017-05-15 13:18 | XMS REPORT | Encounter Summary ---
Author Author [facility] Organization [facility] Address Unknown Phone Unavailable Care Team Providers Care Sas Programmer Name Role Phone PCP Unavailable Encounter Details Date Type Department Care Team Description 04/15/2017 Documentation Center for Yeny Vivas RN Transplantation-Kidney/Pa ncreas Nep [address] [facility] [place], [place] [id number] Social History Tobacco Use Types Packs/Day Years [...] Progress Notes * Yeny Vivas, RN - 04/15/2017 8:18 AM CDT Endocrine note reviewed by Dr Stewart. Will present patient after cardiac testing completed. Endo will be doing some follow up testing but not necessary to wait for results to present. in this encounter Plan of Treatment Not on fileas of this encounter Visit Diagnoses Not on filein this encounter
--- OUTSIDE RECORDS SUMMARY | 2017-05-15 13:18 | XMS REPORT | Encounter Summary ---
Author Author [facility] Organization [facility] Address Unknown Phone Unavailable Care Team Providers Care Community Health Nurse Supervisor Name Role Phone PCP Unavailable Encounter Details Date Type Department Care Team Description 03/04/2017 Hospital [facility] Efrain Vargas MD Encounter Hospital Radiology [address] [place] [address] OFFICE BLDG [phone] [address] [place] [address] Social History Tobacco Use Types Packs/Day Years [...] impairment: No 03/04/2017 as of this encounter Medications at Time of Discharge Medication Sig. Disp. Refills Start Date End Date acetaminophen (TYLENOL) Take 500 mg by mouth 500 mg tablet every 6 hours as needed for Pain. Max of 4,000 mg of acetaminophen in 24 hours. amLODIPine (NORVASC) 10 Take 10 mg by mouth mg tablet daily. apraclonidine (IOPIDINE) Apply 1 Drop to left eye 0.5 % ophthalmic solution as directed four times daily. calcitriol (ROCALTROL) Take 0.5 mcg by mouth 0.5 mcg capsule three times weekly. MWF at dialysis dorzolamide-timolol(+) Apply 1 Drop to left eye (COSOPT) 2-0.5 % as directed twice daily. ophthalmic solution epoetin beta, methoxy peg Inject 100 mcg to area(s) (MIRCERA) 100 mcg/0.3 mL as directed every 14 syrg days. At dialysis homatropine 5 % Apply 1 Drop to left eye ophthalmic solution as directed at bedtime daily. insulin aspart (NOVOLOG Inject 10 Units under the FLEXPEN) 100 unit/mL skin three times daily injection PEN with meals. With sliding scale insulin glargine (LANTUS Inject 15 Units under the SOLOSTAR) 100 unit/mL (3 skin at bedtime daily. mL) injection PEN iron sucrose (VENOFER) 50 Administer 50 mg through mg iron/2.5 mL soln vein every 7 days. At dialysis metoprolol XL (TOPROL XL) Take 100 mg by mouth 100 mg extended release daily. tablet prednisolone acetate Apply 1 Drop to left eye (PRED FORTE) 1 % as directed four times ophthalmic suspension daily. Sevelamer Carbonate Take 4 tablets with meals (RENVELA) 800 mg tab and 2 with snacks as of this encounter Plan of Treatment Not on fileas of this encounter Results * CHEST 2 VIEWS (03/04/2017 1:54 [...] Cassandra Murray M.D. on 03/04/2017 1:58 PM. in this encounter Visit Diagnoses Diagnosis Pre-transplant evaluation for end stage renal disease Other specified pre-operative examination in this encounter
--- OUTSIDE RECORDS SUMMARY | 2017-05-15 13:18 | XMS REPORT | Encounter Summary ---
Author Author [facility] Organization [facility] Address Unknown Phone Unavailable Care Team Providers Care Call Worker Person Name Role Phone PCP Unavailable Reason for Visit * Reason Comments Financial/Insurance Questions Encounter Details Date Type Department Care Team Description 04/23/2017 Telephone Center Yeny Tovar RN Financial/ Insurance Transplantation-Kidney/Pa Questions ncreas [facility] [address] [facility] [place] [address] Social History Tobacco Use Types Packs/Day Years [...]
--- OUTSIDE RECORDS SUMMARY | 2017-05-15 13:18 | XMS REPORT | Encounter Summary ---
Author Author [facility] Organization [facility] Address Unknown Phone Unavailable Care Team Providers Care Prep Manager Name Role Phone PCP Unavailable Encounter Details Date Type Department Care Team Description 04/07/2017 Documentation Center for Abena Weeks MA Transplantation-Kidney/Pa ncreas Nep [address] [facility] [place] [address] Social History Tobacco Use Types Packs/Day Years [...] Notes * Abena Weeks MA - 04/07/2017 10:30 AM CDT LM for [facility] scheduling to see if pt can get in for cardiac testing sooner than 05/21. in this encounter Plan of Treatment Not on fileas of this encounter Visit Diagnoses Not on filein this encounter
--- OUTSIDE RECORDS SUMMARY | 2017-05-15 13:18 | XMS REPORT | Encounter Summary ---
Author Author [facility] Organization [facility] Address Unknown Phone Unavailable Care Team Providers Care Valve Repairer Name Role Phone PCP Unavailable Encounter Details Date Type Department Care Team Description 03/05/2017 Documentation Center for Amelie Francychelsey Transplantation-Kidney/Pa ncreas Nep [address] [facility] [place], [place] [id number] Social History Tobacco Use Types Packs/Day Years [...] as of this encounter Progress Notes * Francy Kinseychelsey - 03/05/2017 12:16 PM CDT Sent over Cardiac Consult/Tests to Mary Jane Barros MD/ [facility] Cardiovascular in this encounter Plan of Treatment Not on fileas of this encounter Visit Diagnoses Not on filein this encounter
--- OUTSIDE RECORDS SUMMARY | 2017-05-15 13:18 | XMS REPORT | Encounter Summary ---
Author Author [facility] Organization [facility] Address Unknown Phone Unavailable Care Team Providers Care Spice Grinder Name Role Phone PCP Unavailable Encounter Details Date Type Department Care Team Description 03/20/2017 Documentation Center for Abena Weeks [place] Transplantation-Kidney/Pa ncreas Nep [address] [facility] [place] [address] Social History Tobacco Use Types Packs/Day Years [...] Progress Notes * Abena Weeks MA - 03/20/2017 4:19 PM CDT Pt is scheduled for cardiac consult on 03/24/[address] Barros in [place], [place]. Referral for endocrine consult faxed to Dr. Caitie Mays [facility] [phone] fax [phone] in this encounter Plan of Treatment Not on fileas of this encounter Visit Diagnoses Not on filein this encounter
--- OUTSIDE RECORDS SUMMARY | 2017-05-15 13:18 | XMS REPORT | Encounter Summary ---
Author Author [facility] Organization [facility] Address Unknown Phone Unavailable Care Team Providers Care Pasting Inspector Name Role Phone PCP Unavailable Reason for Visit * Reason Comments Kidney Evaluation Encounter Details Date Type Department Care Team Description 03/31/2017 Telephone Center Yeny Tovar RN Kidney Evaluation [facility] [address] [facility] [place] [address] Social History Tobacco Use Types Packs/Day Years [...]
--- OUTSIDE RECORDS SUMMARY | 2017-05-15 13:18 | XMS REPORT | Encounter Summary ---
Author Author [facility] Organization [facility] Address Unknown Phone Unavailable Care Team Providers Care Medical Sales Consultant Name Role Phone PCP Unavailable Encounter Details Date Type Department Care Team Description 04/07/2017 Documentation Center for Abena Weeks [place] Transplantation-Kidney/Pa ncreas Nep [address] [facility] [place] [address] Social History Tobacco Use Types Packs/Day Years [...] Notes * Abena Weeks MA - 04/07/2017 11:45 AM CDT Spoke with [facility] scheduling - the reason pt was scheduled so far out was because Dr. Hinton was out of the office until 05/21. Asked if we could have another refrigerator crater read the stress test? Next available would be with Dr. Delarosa on 04/22/17. Was advised pt is scheduled for echo on 04/08/17. Faxed updated stress test order and asked that pt be scheduled for 04/22/17. Will fu with scheduling and notify pt of changes. in this encounter Plan of Treatment Not on fileas of this encounter Visit Diagnoses Not on filein this encounter
--- OUTSIDE RECORDS SUMMARY | 2017-05-15 13:18 | XMS REPORT | Encounter Summary ---
Author Author [facility] Organization [facility] Address Unknown Phone Unavailable Care Team Providers Care Boilermaker Mechanic Name Role Phone PCP Unavailable Reason for Visit * Reason Comments Kidney Evaluation Encounter Details Date Type Department Care Team Description 04/22/2017 Telephone Center Yeny Tovar RN Kidney Evaluation [facility] [address] [facility] [place] [address] Social History Tobacco Use Types Packs/Day Years [...]
--- OUTSIDE RECORDS SUMMARY | 2017-05-15 13:18 | XMS REPORT | Encounter Summary ---
Author Author [facility] Organization [facility] Address Unknown Phone Unavailable Care Team Providers Care Utility Sales Representative Name Role Phone PCP Unavailable Reason for Visit * Reason Comments Kidney Evaluation Encounter Details Date Type Department Care Team Description 04/30/2017 Telephone Center Yeny Tovar RN Kidney Evaluation [facility] [address] [facility] [place] [place] [address] Social History Tobacco Use Types Packs/Day Years [...]
--- OUTSIDE RECORDS SUMMARY | 2017-05-15 13:19 | XMS REPORT | Encounter Summary ---
Author Author [facility] Organization [facility] Address Unknown Phone Unavailable Care Team Providers Care Vendor Management Associate Name Role Phone PCP Unavailable Reason for Referral * Radiology Services Status Reason Specialty Diagnoses / Referred By Referred To Procedures Contact Contact No Auth Needed Radiology Diagnoses Efrain Vargas Mob Ct Pre-transplant [address] evaluation for [address] [facility] BLDG end stage renal Bl[address] [place] [place] [address] rocedures Phone: Phone: CT ABD/PELV WO [phone] CONTRAST Fax: * Radiology Services Status Reason Specialty Diagnoses / Referred By Referred To Procedures Contact Contact No Auth Needed Radiology Diagnoses Efrain Vargas Mob Ct Pre-transplant [address] [facility] [address] [facility] [address] [place] [address] rocedures Phone: Phone: CT ABD/PELV WO [phone] CONTRAST Fax: Reason for Visit * Radiology Services Status Reason Specialty Diagnoses / Referred By Referred To Procedures Contact Contact No Auth Needed Radiology Diagnoses Efrain Vargas Mob Ct Pre-transplant [address] evaluation for [address] [facility] OFFICE BLDG end stage renal Bl[address] [place] [address] rocedures Phone: Phone: CT ABD/PELV WO [phone] CONTRAST Fax: Encounter Details Date Type Department Care Team Description 03/04/2017 Hospital [facility] Efrain Vargas MD Encounter Hospital Radiology [address] [place] [address] OFFICE BLDG [phone] [address] [place] [address] Social History Tobacco Use Types [...] on fileas of this encounter Results * CT ABD/PELV WO CONTRAST (03/04/2017 1:45 [...] Right adrenal gland is unremarkable. Mild bilateral [place] renal atrophy. No hydronephrosis. Few punctate nonobstructing [...] Right adrenal gland is unremarkable. Mild bilateral [place] renal atrophy. No hydronephrosis. Few punctate nonobstructing [...] Natalie Sandhu M.D. on 03/04/2017 2:03 PM. in this encounter Visit Diagnoses Diagnosis Pre-transplant evaluation for end stage renal disease Other specified pre-operative examination in this encounter
--- OUTSIDE RECORDS SUMMARY | 2017-05-15 13:19 | XMS REPORT | Encounter Summary ---
Author Author [facility] Organization [facility] Address Unknown Phone Unavailable Care Team Providers Care Chinese Medicine Practitioner Name Role Phone PCP Unavailable Reason for Visit * Reason Comments Kidney Evaluation Encounter Details Date Type Department Care Team Description 03/04/2017 [facility] Kathleen MD Pre-transplant evaluation Evaluation Transplantation-Kidney/Pa [address] for kidney transplant ncreas Surg [place] 2003 (Primary Dx) [address] [place] [address] [facility] [phone] [place] [address] Sher jo MD [address] [place] [address] [phone] Social History Tobacco Use Types Packs/Day Years Used Date Former Smoker Cigarettes Alcohol Use Drinks/Week oz/Week Comments No 0 Standard 0.0 drinks or equivalent Sex Assigned at Date Recorded Not on file as of this encounter Last Filed Vital Signs Vital Sign Reading [...] Mass Index 29.39 03/04/2017 9:22 AM CDT in this encounter Functional Status Functional Status Response [...] as of this encounter Progress Notes * Sher Sumner MD - 03/04/2017 9:54 AM CDT Formatting of this note may be different from the original. [facility] PRE-TRANSPLANT EVALUATION ATTENDING: Dr. Chris Sumner MD REQUESTING PHYSICIAN: Dr. Torsten MD Date of Service: 03/04/2017 Tati Kurtz is a 41 y.o. female with end stage renal disease secondary to diabetes. HPI: History of Present Illness Tati Kurtz is a 41-year-old woman with end- stage renal disease secondary to diabetes. Her primary elementary education tutor, Dr. Lencho Alfonso has requested that the transplant surgery service here at the [facility] consult on Ms. Kurtz in order to evaluate her as a potential candidate for renal transplantation. Ms. Kurtz does have type 1 diabetes. She takes approximately 70-80 units of insulin per day and weighs approximately 160 pounds. She is supported through hemodialysis three times a week via a right upper extremity arteriovenous fistula. She tolerates this well. 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 She lives at home with her girlfriend and girlfriend's son. She has a strong functional status. She can climb multiple flights of stairs and walk multiple city blocks without shortness of breath, chest pain, claudication, or undue fatigue. She does exercise occasionally. Ms. Kurtz does identify as a woman, though she has strong masculine features including a mustache. Review of Systems Constitutional: Negative for fever, activity change, appetite change and fatigue. HENT: Negative for hearing loss, mouth sores and nosebleeds. Eyes: Negative for pain and visual disturbance. Respiratory: Negative for chest tightness and shortness of breath. Cardiovascular: Negative for chest pain and leg swelling. Gastrointestinal: Negative for nausea, abdominal pain, diarrhea, constipation and abdominal distention. Endocrine: Negative for cold intolerance and heat intolerance. Genitourinary: Negative for dysuria, urgency and difficulty urinating. Musculoskeletal: Negative for arthralgias and neck pain. Skin: Negative for color change, pallor and rash. Neurological: Negative for syncope, weakness and headaches. Hematological: Negative for adenopathy. Does not bruise/bleed easily. Psychiatric/Behavioral: Negative. PAST MEDICAL HISTORY Diabetes type 1 HTN hyperlipidemia PAST SURGICAL HISTORY Right arm AV fistula Family/Social History No family history on file. Social History Social History Marital Status: Unknown Spouse Name: N/A Number of Children: N/A Years of Education: N/A Occupational History Not on file. Social History Main Topics Smoking status: Former Smoker Types: Cigarettes Smokeless tobacco: Not on file Alcohol Use: No Drug Use: No Sexual Activity: Not on file Other Topics Concern Not on file Social History Narrative Meds/Allergies No current outpatient prescriptions on file. No Known Allergies VS: lBP 107/57 mmHg | Pulse 54 | Temp(Src) 36.4 C (97.5 F) | Ht 162.6 cm (64") | Wt 77.656 kg (171 lb 3.2 oz) | BMI 29.37 kg/m2 | SpO2 100% Body mass index is 29.37 kg/(m^2). PE Physical Exam Constitutional: She is oriented to person, place, and time. She appears well- developed and well-nourished. Muscular. HENT: Head: Normocephalic and atraumatic. Full moustache. Eyes: Conjunctivae and EOM are normal. Pupils are equal, round, and reactive to light. Neck: No tracheal deviation present. No thyromegaly present. Cardiovascular: Normal rate, regular rhythm, normal heart sounds and intact distal pulses. 2+ bilateral femoral pulses. Pulmonary/Chest: Effort normal and breath sounds normal. Abdominal: Soft. Bowel sounds are normal. She exhibits no distension and no mass. There is no tenderness. No hernia. Musculoskeletal: Normal range of motion. She exhibits no tenderness. Lymphadenopathy: She has no cervical adenopathy. Neurological: She is alert and oriented to person, place, and time. Skin: Skin is warm and dry. No pallor. Psychiatric: She has a normal mood and affect. Her behavior is normal. Judgment and thought content normal. Vitals reviewed. Labs and Diagnostic Tests: Urinalysis: No results found for: UCOLOR, TURBID, USPGR, UPH, UPROTEIN, UAGLU, UKET, UBILE, UBLD, UROB Viral Serologies: No flowsheet data found. CBC with Diff: No flowsheet data found. CMP: No flowsheet data found. Other Common Labs: No flowsheet data found. Imaging: Assessment and Plan: Tati Kurtz is a 41 y.o. year old woman with renal disease secondary to diabetes. Though Mr. Kurtz identifies as a woman, she has strong masculine features including a full moustash. Prior to being listed for renal transplantation, it would be helpful to have Ms. Kurtz seen by an retail department reset. An retail department reset can help to determine whether she is a type 1 or type 2 diabetic. In addition, an retail department reset can evaluate her for hyperandrogenism syndrome such as intersex disorder. Once those issues have been worked out by Endocrinology, it will likely be possible to proceed with work-up for transplantation. Tati Kurtz does appear to be a good candidate for renal transplantation from a surgical perspective. . We had a thorough discussion regarding renal transplantation. We discussed the kidney allocation system and how it is based upon waiting time, starting from the date dialysis is initiated. We spoke about the sources for renal allografts , including living and donor allografts. The patient does not have a potential living renal allograft donor. We specifically spoke about the kidney transplant procedure. We spoke about the recovery process as well as the possibility for post-operative complications including; rejection, arterial stenosis, renal vein thrombosis, ureteral complications, lymphocele, and wound complications. We talked about the need for and the potential complications of immunosuppression, including infection and the modest increase risk of cancer due to immunosuppression. We also spoke about delayed graft function and the possibility for a brief period of dialysis after transplantation We had a thorough discussion regarding pancreas transplantation. We discussed the pancreas allocation system and how it is based upon waiting time, starting from the date dialysis is initiated. We reviewed that all pancreas allografts are all from donor allografts. We specifically spoke about the pancreas transplant procedure. We spoke about the possibility for post- operative complications including; rejection, arterial stenosis, portal vein thrombosis, duodenal complications, lymphocele, pancreatic leak, enterocutaneous fistula, and wound infection. Chris Sumner MD Transplant Surgery in this encounter Plan of Treatment Not on fileas of this encounter Visit Diagnoses Diagnosis Pre-transplant evaluation for kidney transplant - Primary Other specified pre-operative examination in this encounter
--- OUTSIDE RECORDS SUMMARY | 2017-05-15 13:19 | XMS REPORT | Encounter Summary ---
Author Author [facility] Organization [facility] Address Unknown Phone Unavailable Care Team Providers Care Special Programs Director Name Role Phone PCP Unavailable Encounter Details Date Type Department Care Team Description 03/04/2017 [facility] Milly Stewart MD Encounter for other Encounter [address] [place] [address] [address] [place] [address] [phone] Social History Tobacco Use Types Packs/Day Years [...] on fileas of this encounter Results * BLOOD TYPE CONFIRMATION - ORDER ONLY IF REQUESTED BY LAB (03/04/2017 1:02 PM) Component Value Ref Range ABO/RH(D) A POS Specimen Performing Laboratory Blood MAIN LAB [address] [place] [address] * LAVENDER (EDTA) TOP TUBE FOR MTN TRANSPLANT (03/04/2017 12:48 PM) Specimen Performing Laboratory Blood REFERENCE LAB * RED TOP TUBE FOR MTN TRANSPLANT (03/04/2017 12:48 PM) Specimen Performing Laboratory Blood REFERENCE LAB * PHENCYCLIDINES-URINE RANDOM (03/04/2017 12:48 PM) Component Value Ref Range Phencyclidine (PCP) NEG NEG-NEG Comment: RESULTS WERE OBTAINED BY IMMUNOASSAY AND ARE PRESUMPTIVE ONLY. POSITIVE INDICATES THE PRESENCE OF SUBSTANCE WITH CHARACTERISTICS SIMILAR TO DRUG-DRUG CLASS OR METABOLITE IN CONC. EQUAL TO OR EXCEEDING VALUES LISTED. PHENCYCLIDINE (PCP) 25 NG/ML Specimen Performing Laboratory Urine MAIN LAB [address] [place] [address] * OPIATES-URINE RANDOM (03/04/2017 12:48 PM) Component Value Ref Range Opiates-Urine NEG NEG-NEG Comment: RESULTS WERE OBTAINED BY IMMUNOASSAY AND ARE PRESUMPTIVE ONLY. POSITIVE INDICATES THE PRESENCE OF SUBSTANCE WITH CHARACTERISTICS SIMILAR TO DRUG-DRUG CLASS OR METABOLITE IN CONC. EQUAL TO OR EXCEEDING VALUES LISTED. OPIATES 200 0 NG/ML Specimen Performing Laboratory Urine [facility] LAB [address] [place] [phone] * COCAINE-URINE RANDOM (03/04/2017 12:48 PM) Component Value Ref Range Cocaine-Urine NEG NEG-NEG Comment: RESULTS WERE OBTAINED BY IMMUNOASSAY AND ARE PRESUMPTIVE ONLY. POSITIVE INDICATES THE PRESENCE OF SUBSTANCE WITH CHARACTERISTICS SIMILAR TO DRUG-DRUG CLASS OR METABOLITE IN CONC. EQUAL TO OR EXCEEDING VALUES LISTED. COCAINE 300 NG/ML Specimen Performing Laboratory Urine [facility] LAB [address] [place] [address] * CANNABINOIDS-URINE RANDOM (03/04/2017 12:48 PM) Component Value Ref Range THC NEG NEG-NEG Comment: RESULTS WERE OBTAINED BY IMMUNOASSAY AND ARE PRESUMPTIVE ONLY. POSITIVE INDICATES THE PRESENCE OF SUBSTANCE WITH CHARACTERISTICS SIMILAR TO DRUG-DRUG CLASS OR METABOLITE IN CONC. EQUAL TO OR EXCEEDING VALUES LISTED. CANNABINOIDS 50 NG/ML Specimen Performing Laboratory Urine [facility] LAB [address] [place] [address] * BENZODIAZEPINES-URINE RANDOM (03/04/2017 12:48 PM) Component Value Ref Range Benzodiazepines NEG NEG-NEG Comment: RESULTS WERE OBTAINED BY IMMUNOASSAY AND ARE PRESUMPTIVE ONLY. POSITIVE INDICATES THE PRESENCE OF SUBSTANCE WITH CHARACTERISTICS SIMILAR TO DRUG-DRUG CLASS OR METABOLITE IN CONC. EQUAL TO OR EXCEEDING VALUES LISTED. BENZODIAZEPINES 200 NG/ML Specimen Performing Laboratory Urine [facility] LAB [address] [place] [id number] * BARBITURATES-URINE RANDOM (03/04/2017 12:48 PM) Component Value Ref Range Barbiturates,Urine NEG NEG-NEG Comment: RESULTS WERE OBTAINED BY IMMUNOASSAY AND ARE PRESUMPTIVE ONLY. POSITIVE INDICATES THE PRESENCE OF SUBSTANCE WITH CHARACTERISTICS SIMILAR TO DRUG-DRUG CLASS OR METABOLITE IN CONC. EQUAL TO OR EXCEEDING VALUES LISTED. BARBITURATES 200 NG/ML Specimen Performing Laboratory Urine [facility] LAB [address] [place] [address] * AMPHETAMINES-URINE RANDOM (03/04/2017 12:48 PM) Component Value Ref Range Amphetamines NEG NEG-NEG Comment: RESULTS WERE OBTAINED BY IMMUNOASSAY AND ARE PRESUMPTIVE ONLY. POSITIVE INDICATES THE PRESENCE OF SUBSTANCE WITH CHARACTERISTICS SIMILAR TO DRUG-DRUG CLASS OR METABOLITE IN CONC. EQUAL TO OR EXCEEDING VALUES LISTED. AMPHETAMINES 1000 NG/ML Specimen Performing Laboratory Urine MAIN LAB [address] [place] [address] * HEMOGLOBIN A1C (03/04/2017 12:48 PM) Component Value Ref Range Hemoglobin A1C 7.2 (H) 4.0 - 6.0 % Comment: The ADA recommends that most patients with type 1 and type 2 diabetes maintain an A1c level <7%. Specimen Performing Laboratory Blood MAIN LAB [address] [place] [address] * C-PEPTIDE (03/04/2017 12:48 PM) Component Value Ref Range C-Peptide 0.5 (L) Comment: Reference range: 1.1 to 4.4 Unit: ng/mL [facility], [address] [place] [address] Specimen Performing Laboratory Blood REFERENCE LAB * URINALYSIS, MICROSCOPIC (03/04/2017 12:48 PM) Component Value Ref Range WBCs,UA 2-10 0 - 2 /HPF RBCs,UA 0-2 0 - 3 /HPF MucousUA TRACE Bacteria,UA FEW (A) NEG-NEG Squamous Epithelial Cells 10-20 0 - 5 Hyaline Cast 5-10 Specimen Performing Laboratory Urine MAIN LAB [address] [place] [address] * URINALYSIS DIPSTICK (03/04/2017 12:48 PM) Component Value Ref Range Color,UA YELLOW Turbidity,UA 1+ (A) CLEAR-CLEAR Specific [place]-Urine 1.019 1.003 - 1.035 pH,UA 6.0 5.0 - 8.0 Protein,UA 3+ (A) NEG-NEG Glucose,UA 1+ (A) NEG-NEG Ketones,UA NEG NEG-NEG Bilirubin,UA NEG NEG-NEG Blood,UA NEG NEG-NEG Urobilinogen,UA NORMAL NORM-NORMAL Nitrite,UA NEG NEG-NEG Leukocytes,UA TRACE (A) NEG-NEG Urine Ascorbic Acid, UA NEG NEG-NEG Specimen Performing Laboratory Urine MAIN LAB [address] [place] [address] * SYPHILIS AB SCREEN (03/04/2017 12:48 PM) Component Value Ref Range Syphilis AB, Total NEG NEG-NEG Comment: Negative EIA: Negative results indicate no past or present syphilis infection. Early infection can not be excluded. Specimen Performing Laboratory Blood MAIN LAB [address] [place] [address] * PROTIME INR (PT) (03/04/2017 12:48 PM) Component Value Ref Range INR 1.0 0.8 - 1.2 Specimen Performing Laboratory Blood MAIN LAB [address] [place] [address] * PHOSPHORUS (03/04/2017 12:48 PM) Component Value Ref Range Phosphorus 3.6 2.0 - 4.0 MG/DL Specimen Performing Laboratory Blood MAIN LAB [address] [place] [address] * HSV I/II GLYCOPROTEIN G AB (03/04/2017 12:48 PM) Component Value Ref Range HSV Type 1 IgG POS (A) NEG-NEG HSV Type 2 IgG EQUIVOCAL, PLEASE SUBMIT ANOTHER SPECIMEN IN 4-6 NEG-NEG WEEKS (A) Specimen Performing Laboratory Blood MAIN LAB [address] [place] [address] * HIV AB SCREEN(1 AND 2) (03/04/2017 12:48 PM) Component Value Ref Range HIV 1 and 2 AG AB Screen NEG NEG-NEG Specimen Performing Laboratory Blood MAIN LAB [address] [place] [address] * HEPATITIS C AB (03/04/2017 12:48 PM) Component Value Ref Range Anti HCV NEG Specimen Performing Laboratory Blood [facility] LAB [address] [place] [address] * HEPATITIS B SURFACE AG (03/04/2017 12:48 PM) Component Value Ref Range HBsAg NEG Specimen Performing Laboratory Blood [facility] LAB [address] [place] [address] * HEPATITIS B SURFACE AB (03/04/2017 12:48 PM) Component Value Ref Range Anti HBs >1000.0 mIU/ml Comment: Hepatitis B Surface Antibody Reference Ranges >12.0 Positive 8.0-12.0 Equivocal <8.0 Negative Specimen Performing Laboratory Blood MAIN LAB [address] [place] [address] * HEPATITIS B CORE AB TOT (IGG+IGM) (03/04/2017 12:48 PM) Component Value Ref Range Anti HBc Total NEG Specimen Performing Laboratory Blood MAIN LAB [address] [place] [address] * ROLAND TURCIOS PANEL(EBV) (03/04/2017 12:48 PM) Component Value Ref Range EBV Capsid IgG POS EBV Nuclear Ag,Ab POS EBV Early Ag,Ab NEG EBV Capsid IgM NEG Specimen Performing Laboratory Blood MAIN LAB [address] [place] [address] * COMPREHENSIVE METABOLIC PANEL (03/04/2017 12:48 PM) [...] Pharmacist for questions. Specimen Performing Laboratory Blood MAIN LAB [address] [place] [address] * CMV AB IGM (03/04/2017 12:48 PM) Component Value Ref Range CMV, IgM NEG Specimen Performing Laboratory Blood MAIN LAB [address] [place] [address] * CMV AB IGG (03/04/2017 12:48 PM) Component Value Ref Range CMV, IgG POS Specimen Performing Laboratory Blood MAIN LAB [address] [place] [address] * CBC AND DIFF (03/04/2017 12:48 PM) [...] Specimen Performing Laboratory Blood MAIN LAB [address] [place] [address] * ABO/RH(D) (03/04/2017 12:48 PM) Component Value Ref Range ABO/RH(D) A POS Specimen Performing Laboratory Blood MAIN LAB [address] [place] [address] in this encounter Visit Diagnoses Diagnosis Pre-transplant evaluation for end stage renal disease Other specified pre-operative examination Screening for human immunodeficiency virus Special screening examination for other specified viral diseases Coagulation defect (HCC) Other and unspecified coagulation defects 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
--- OUTSIDE RECORDS SUMMARY | 2017-05-15 13:19 | XMS REPORT | Encounter Summary ---
Author Author [facility] Organization [facility] Address Unknown Phone Unavailable Care Team Providers Care Fruit Or Nut Farmer Name Role Phone PCP Unavailable Reason for Referral * Consult, Test & Treat Status Reason Specialty Diagnoses / Referred By Referred To Procedures Contact Contact New Request Specialty Endocrinology Diagnoses Milly Stewart MD Services Pre-transplant [address] Required evaluation for [address] end stage renal [address] [place] [address] * Consult, Test & Treat Status Reason Specialty Diagnoses / Referred By Referred To Procedures Contact Contact New Request Diagnoses Milly Stewart MD Pre-transplant [address] evaluation for [address] end stage renal [place] [address] [place], [place] [address] rocedures Phone: REGADENOSON [phone] [facility] Fax: STRESS TEST [phone] * Consult, Test & Treat Status Reason Specialty Diagnoses / Referred By Referred To Procedures Contact Contact New Request Specialty Cardiology Diagnoses Milly Stewart MD Services Pre-transplant [address] Required evaluation for Blvd end stage renal [address] [place] [address] * Test Status Reason Specialty Diagnoses / Referred By Referred To Procedures Contact Contact New Request Diagnoses Milly Stewart MD Pre-transplant [address] evaluation for [address] end stage renal [place] [address] [place] [address] rocedures Phone: 2-D + DOPPLER [phone] ECHOCARDIOGRAM Reason for Visit * Reason Comments Kidney Evaluation Encounter Details Date Type Department Care Team Description 03/04/2017 Office Visit Center for Milly Stewart MD Pre-transplant evaluation Transplantation-Kidney/[place] [address] for end stage renal ncreas Nep [address] (Primary [address] [place] [address] Dx);Pre-kidney CENTER FOR [phone] transplant, TRANSPLANTATION listed;[place] [address] human immunodeficiency [phone] virus;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);Coagulation defect (HCC);ESRD (end stage renal disease) (HCC) Social History Tobacco Use Types Packs/Day Years Used Date Former Smoker Cigarettes Alcohol Use Drinks/Week oz/Week Comments No 0 Standard 0.0 drinks or equivalent Sex Assigned at Date Recorded Not on file as of this encounter Last Filed Vital Signs Vital Sign Reading Time Taken Blood Pressure 107/57 03/04/2017 7:56 AM CDT Pulse 54 03/04/2017 7:56 AM CDT Temperature 36.4 C (97.6 F) 03/04/2017 7:51 AM CDT Respiratory Rate - - Oxygen Saturation 100% 03/04/2017 7:51 AM CDT Inhaled Oxygen - - Concentration Weight 77.7 kg (171 lb 3.2 oz) 03/04/2017 7:51 AM CDT Height 162.6 cm (5' 4") 03/04/2017 7:51 AM CDT Body Mass Index 29.39 03/04/2017 7:51 AM CDT in this encounter Functional Status [...] impairment: No 03/04/2017 as of this encounter Instructions * Patient Instructions - Yeny Vivas RN - 03/04/2017 12:11 PM CDT You were seen by members of the Pre Renal/Pancreas Transplant Team today who has recommended that you complete the following: Chest x-ray CT of your abdomen and pelvis WITHOUT contrast. Lab work Echocardiogram Stress test Follow up on breast ultrasound Endocrine consult A referral has been placed for you to be seen by Cardiology. Someone from that office will contact you to schedule an appointment. In addition, orders have been placed for you to have an echocardiogram and a stress test as part of your evaluation. Someone will contact you to schedule these tests. Please keep your Nurse Coordinator informed of ANY changes in your health and insurance status. We recommend that you sign up for MyChart. The activation code has been provided to you in your after visit summary for today's visit. It was a pleasure to see you today. Thank you for partnering with [facility] for your care. If you should have any questions or concerns, please feel free to contact us. Yeny Vivas RN, BSN Renal/Pancreas Photographic Press Screwmaker [facility] [email or web address] , fax [phone] in this encounter Progress Notes * Katharine Kapoor, PHARMD - 03/04/2017 12:48 PM CDT Formatting of this note may be different from the original. Pharmacy Kidney/PancreasTransplant Evaluation I met with Tati Kurtz during their pre-transplant clinic visit for their pharmacy transplant evaluation. A medication history was completed with the patient. Ms. Kurtz utilizes a pillbox to help manage medications and does not miss medications. Home Medications Medication Sig acetaminophen (TYLENOL) 500 mg tablet Take 500 mg by mouth every 6 hours as needed for Pain. Max of 4,000 mg of acetaminophen in 24 hours. amLODIPine (NORVASC) 10 mg tablet Take 10 mg by mouth daily. apraclonidine (IOPIDINE) 0.5 % ophthalmic solution Apply 1 Drop to left eye as directed four times daily. calcitriol (ROCALTROL) 0.5 mcg capsule Take 0.5 mcg by mouth three times weekly. MWF at dialysis dorzolamide-timolol(+) (COSOPT) 2-0.5 % ophthalmic solution Apply 1 Drop to left eye as directed twice daily. epoetin beta, methoxy peg (MIRCERA) 100 mcg/0.3 mL syrg Inject 100 mcg to area(s ) as directed every 14 days. At dialysis homatropine 5 % ophthalmic solution Apply 1 Drop to left eye as directed at bedtime daily. insulin aspart (NOVOLOG FLEXPEN) 100 unit/mL injection PEN Inject 10 Units under the skin three times daily with meals. With sliding scale insulin glargine (LANTUS SOLOSTAR) 100 unit/mL (3 mL) injection PEN Inject 15 Units under the skin at bedtime daily. iron sucrose (VENOFER) 50 mg iron/2.5 mL soln Administer 50 mg through vein every 7 days. At dialysis metoprolol XL (TOPROL XL) 100 mg extended release tablet Take 100 mg by mouth daily. prednisolone acetate (PRED FORTE) 1 % ophthalmic suspension Apply 1 Drop to left eye as directed four times daily. Sevelamer Carbonate (RENVELA) 800 mg tab Take 4 tablets with meals and 2 with snacks During this visit the patient was provided with an overview of therapies that will be initiated post-transplant, including but not limited to significant side effects and dosing schedules. Emphasis was placed on the importance of medication adherence both pre and post-transplant. As the patient is a female of childbearing age a review of the REMs program was completed. Post-transplant medication education materials were provided. The patient was encouraged to contact the transplant pharmacist with any follow up questions. Tati Kurtz expressed understanding of the information discussed. No medication related barriers to transplantation were identified. Katharine Kapoor, PharmD * Yeny Vivas RN - 03/04/2017 12:13 PM CDT You were seen by members of the Pre Renal/Pancreas Transplant Team today who has recommended that you complete the following: Chest x-ray CT of your abdomen and pelvis WITHOUT contrast. Lab work Echocardiogram Stress test Follow up on breast ultrasound Endocrine consult A referral has been placed for you to be seen by Cardiology. Someone from that office will contact you to schedule an appointment. In addition, orders have been placed for you to have an echocardiogram and a stress test as part of your evaluation. Someone will contact you to schedule these tests. Please keep your Nurse Coordinator informed of ANY changes in your health and insurance status. We recommend that you sign up for Pinterest[employer]. The activation code has been provided to you in your after visit summary for today's visit. It was a pleasure to see you today. Thank you for partnering with [facility] for your care. If you should have any questions or concerns, please feel free to contact us. Yeny Vivas RN, BSN Renal/Pancreas Photographic Press Screwmaker [facility] [email or web address] , fax [phone] * Jinny Valdivia - 03/04/2017 10:49 AM CDT SPK Transplant Nutrition Evaluation Impressions: I see no nutritional contraindications to transplantation at this time. Pt has an appropriate body habitus for RTx. BMI 29.39kg/m2 Estimated body mass index is 29.37 kg/(m^2) as calculated from the following: Height as of this encounter: 162.6 cm (64"). Weight as of this encounter: 77.656 kg (171 lb 3.2 oz). Subjective: Pt reported current weight: 171# Usual wt in the past 6 mo: 171# Pt reported muscle/weight loss: denies wt changes Pt reported appetite: good Pt reported current diet: Renal/Diabetic Nutrition related compliance: Marginal 41 yo female with Hx of ESRD 2/2 T1DM and HTN, here for an SPK evaluation. Pt reports she started dialysis in April of 2016, and goes MWF at 6am. She takes insulin and checks her blood sugars 3-4 each day, they range from 120-240mg/dL. Her last reported HbgA1c was 7.8%. Per diet recall she eats peanut butter crackers for breakfast, after dialysis she will go to [employer] for fish, chicken, or burgers at another fast food restaurant. For dinner, patient and significant other will grill pork chops, cheese and broccoli or breakfast food such as sausage, yates and eggs. She has cut back on her potato consumption. She drinks water and occasionally root beer. She snacks on peanut butter crackers, yogurt and ice cream. She takes a phosphorus binder before each meal and snack. When she first started dialysis she struggles with high phosphorus, she reports currently her albumin, phos and K+ are all WNL. 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 Instructed on post-transplant nutrition related expectations. Discussed importance of hand hygiene, food safety, grapefruit avoidance. Goals: Encouraged continued compliance with a Renal Dialysis Diet and increase her physical activity MD referral received on 03/04/2017 for medical nutrition therapy services. Jinny Valdivia, MS, RD, LD *[id number] * Randa Fitzgerald - 03/04/2017 10:43 AM CDT Randa Romero met with Tati Kurtz and Yvette for insurance consult. There appear to be No coverage/insurance barriers to transplant with [facility] and Medicare A&B plan. Tati expressed No insurance concerns related to cost of post-transplant care and medications and verbalized understanding of Transplant Finance Coordinator's discussion and documents presented. Financial Assessment given due to all financial liabilities. Authorization required prior to listing. Documents presented: Signed Patient Liability Form, Medication Cost Estimate and Financial Assessment. MMV 03/04/2017 * Milly Stewart MD - 03/04/2017 10:43 AM CDT Formatting of this note may be different from the original. 03/30/2017 Tati Kurtz [id number] Marcin Sarmiento [address] [facility] [address] [place] [address] Marcin Sarmiento, We had the pleasure of meeting Ms. Kurtz in the Renal Transplant Clinic for a potential SPK. As you know this is a 41 year old female with the following Pmhx: 1) DM1, diagnosed at age 12. Has a strong family hx of DM (mother, father, brother and sister-all Type 1 DM ). Has been on insulin since age 12. DM was uncontrolled for many years. Last Hb1c is 7.8, has been as high as 12 before. Managed by PCP now, Dr. Quintero since she lived in [place] around 1999. 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 Will try to get a lens in in the next few months. Still drives and does her ADLS and IADLS. No gastroparesis, no issues with nausea or vomiting, mild DM neuropathy, no meds needed for it, mostly in her hands. No non healing ulcers and no amputations. No hospitaliatroins for DKA. 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 All those times she was asleep and didn't feel it. Needed to go to the hospital. Normally when awake is able to tell that she has low glucose On average she requires about 45-55 units of insulin on average. She is Novolog 10 units with meals and uses ISS as needed. Lantus 15 units at bedtime. 2) ESRD, on dialysis, April 2016 and has a JIGAR fistula. Makes about 1 cup per day. 3) HTN, diagnosed around 1999. Had uncontrolled for a few years now better controlled, on Metoprolol XR and amlodipoine. 4) HLD, not on medciation 5) Perirectal abscess, 2004 and 2005. 6. Breast biopsy done in 2009 after abnormal imaging, which was benign. She again had an abnormal mammogram this year after which an ultrasound was done in 11/2016. It showed a small 0.5 cm complicated cyst, it is thought to be benign and a follow up in 6 months is reccommended. Pap smears have always normal. 7) Former smoker. 1/2 PPD for 18 years and stopped Apr 2016. 8) BMI is 30, weight has been 75.5-77 kg. This is the highest weight. Stable for 3-4 months. 9) She has hirsutism, and has a physical appearance of a male but identifies herself as a female. Never been tested for any endocrine issues. She states she has never taken any hormonal therapy at all. She has never had any imaging done to evaluate for abdominal testes etc. She states she has had irregular periods as a child. From 2006 till September of 2016 they had became regular having monthly periods, For 6-7 days. Since Sep 2016 she has had no periods again. She states she is very comfortable with how she looks and has never had any issues with depression. Her partner Yvette also identified no concerns. S: Walks a lot, about 2-3 miles a day. No particular exercise regimen. Denies CP, no SOA, no dizziness, no palpitations, no claudication s/s. Can take up to 3-4 flights of stairs. No hx of strokes, no CAD. Comprehensive 14-point ROS obtained: Otherwise negative besides what is stated above. Allergies: No Known Allergies Past History: PMhx: as above PShx: Right arm AV fistula Eye surgery recently L eye Social History Social History Marital Status: Unknown Spouse Name: N/A Number of Children: N/A Years of Education: N/A Occupational History Not on file. Social History Main Topics Smoking status: Former Smoker Types: Cigarettes Smokeless tobacco: Not on file Alcohol Use: No Drug Use: No Sexual Activity: Not on file Other Topics Concern Not on file Social History Narrative Drinks socially. 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 No children. Her significant other name Yvette is with her. Not . They live in a household together and Yvette's son age 15 also lives there. Tobacco, she quit in April 2016. She smoked for 22 years, half a pack per day for a total of 11 pack years. No Illicit drug use. Family Hx: mother, father, brother and sister-all Type 1 DM. Mother and brother . Mother secondary to ESRD and mother with heart issues. 2 nephews with ESRD, one nephew on dialysis and one with a kideny transplant 2 mths ago at [facility]. No hx of cancers in family. Current Medications: acetaminophen (TYLENOL) 500 mg tablet Take 500 mg by mouth every 6 hours as needed for Pain. Max of 4,000 mg of acetaminophen in 24 hours. amLODIPine (NORVASC) 10 mg tablet Take 10 mg by mouth daily. apraclonidine (IOPIDINE) 0.5 % ophthalmic solution Apply 1 Drop to left eye as directed four times daily. calcitriol (ROCALTROL) 0.5 mcg capsule Take 0.5 mcg by mouth three times weekly. MWF at dialysis dorzolamide-timolol(+) (COSOPT) 2-0.5 % ophthalmic solution Apply 1 Drop to left eye as directed twice daily. epoetin beta, methoxy peg (MIRCERA) 100 mcg/0.3 mL syrg Inject 100 mcg to area(s) as directed every 14 days. At dialysis homatropine 5 % ophthalmic solution Apply 1 Drop to left eye as directed at bedtime daily. insulin aspart (NOVOLOG FLEXPEN) 100 unit/mL injection PEN Inject 10 Units under the skin three times daily with meals. With sliding scale insulin glargine (LANTUS SOLOSTAR) 100 unit/mL (3 mL) injection PEN Inject 15 Units under the skin at bedtime daily. iron sucrose (VENOFER) 50 mg iron/2.5 mL soln Administer 50 mg through vein every 7 days. At dialysis metoprolol XL (TOPROL XL) 100 mg extended release tablet Take 100 mg by mouth daily. prednisolone acetate (PRED FORTE) 1 % ophthalmic suspension Apply 1 Drop to left eye as directed four times daily. Sevelamer Carbonate (RENVELA) 800 mg tab Take 4 tablets with meals and 2 with snacks Physical Exam: BP 107/57 mmHg | Pulse 54 | Temp(Src) 36.4 C (97.6 F) | Ht 162.6 cm (64") | Wt 77.656 kg (171 lb 3.2 oz) | BMI 29.37 kg/m2 | SpO2 100% HEENT: Normocephalic and atraumatic. Has a mustache. EOMI, CLARISSA. Neck: No thyromegaly present. Cardiovascular: Normal rate, regular rhythm, normal heart sounds and intact distal pulses. Pulmonary/Chest: Effort normal and breath sounds normal. Abdominal: Soft. Bowel sounds are normal. She exhibits no distension and no mass. There is no tenderness. No hernia. EXT: no edema, she has a RAVF with a good bruit and thrill to it. Neurological: She is alert and oriented to person, place, and time. Skin: Skin is warm and dry. No pallor. Psychiatric: She has a normal mood and affect. Her behavior is normal. Judgment and thought content normal. Laboratory studies: Pending Urinalysis: Lab Results Component Value Date/Time COLOR,UA YELLOW 03/04/2017 12:48 PM TURBIDITY,UA 1+* 03/04/2017 12:48 PM SPECIFIC GRAVITY-URINE 1.019 03/04/2017 12:48 PM PH,UA 6.0 03/04/2017 12:48 PM PROTEIN,UA 3+* 03/04/2017 12:48 PM GLUCOSE,UA 1+* 03/04/2017 12:48 PM KETONES,UA NEG 03/04/2017 12:48 PM BILIRUBIN,UA NEG 03/04/2017 12:48 PM BLOOD,UA NEG 03/04/2017 12:48 PM UROBILINOGEN,UA NORMAL 03/04/2017 12:48 PM Viral Serologies: Viral Serologies Latest Ref Rn 03/04/2017 CMV IgG - POS CMV IgM - NEG EBV Capsid IgG - POS EBV Capsid IgM - NEG EBV Nuclear AG, AB - POS EBV Early AG,AB - NEG HSV Type 2 IgG NEG-NEG EQUIVOCAL, PLEASE SUBMIT ANOTHER SPECIMEN IN 4-6 WEEKS(A ) HIV 1 & 2 AG, AB NEG-NEG NEG CBC with Diff: CBC with Diff Latest Ref [facility] 03/04/2017 WBC 4.5 - 11.0 K/UL 7.6 RBC 4.0 - 5.0 M/UL 3.85(L) HGB 12.0 - 15.0 GM/DL 12.0 HCT 36 - 45 % 36.3 MCV 80 - 100 FL 94.1 MCH 26 - 34 PG 31.2 MCHC 32.0 - 36.0 G/DL 33.1 RDW 11 - 15 % 17.8(H) PLT 150 - 400 K/UL 326 MPV 7 - 11 FL 7.6 NEUT 41 - 77 % 51 ANC 1.8 - 7.0 K/UL 3.90 LYMA 24 - 44 % 37 ALYM 1.0 - 4.8 K/UL 2.80 ILYA 4 - 12 % 10 AMONO 0 - 0.80 K/UL 0.80 EOSA 0 - 5 % 1 AEOS 0 - 0.45 K/UL 0.10 BASA 0 - 2 % 1 ABAS 0 - 0.20 K/UL 0.10 CMP: CMP Latest Ref Rng 03/04/2017 NA 137 - 147 MMOL/L 137 K 3.5 - 5.1 MMOL/L 3.8 CL 98 - 110 MMOL/L 92(L) CO2 21 - 30 MMOL/L 37(H) GAP 3 - 12 8 BUN 7 - 25 MG/DL 24 CR 0.4 - 1.00 MG/DL 8.77(H) GLUX 70 - 100 MG/DL 53(L) CA 8.5 - 10.6 MG/DL 10.1 TP 6.0 - 8.0 G/DL 9.0(H) ALB 3.5 - 5.0 G/DL 4.9 ALKP 25 - 110 U/L 131(H) ALT 7 - 56 U/L 10 TBILI 0.3 - 1.2 MG/DL 0.5 GFR >60 mL/min 5(L) GFRAA >60 mL/min 6(L) Other Common Labs: Other Common Labs Latest Ref Rng 03/04/2017 PO4 2.0 - 4.0 MG/DL 3.6 UPRO NEG-NEG 3+(A) HBA1C 4.0 - 6.0 % 7.2(H) There are no active problems to display for this patient. Imaging: Results for orders placed during the hospital encounter of 03/04/17 (from the past 1650 hours) CT ABD/PELV WO CONTRAST Impression 1. No aortoiliac aneurysm or significant calcification. [...] Natalie Sandhu M.D. on 03/04/2017 2:03 PM. Results for orders placed during the hospital encounter of 03/04/17 (from the past 1650 hours) CHEST 2 VIEWS Impression No radiographic evidence of acute cardiopulmonary disease. Finalized by Cassandra Murray M.D. on 03/04/2017 1:59 PM. Dictated by Cassandra Murray M.D. on 03/04/2017 1:58 PM. Potential barriers for Transplantation: None. Education and Consent: We discussed the risks, benefits, and complications of renal transplantation with the patient including donor and living donor transplantation. We also discussed the kidney allocation system including KDPI, EPTS scores and wait times. The use, compliance with medications and side effects of immunosuppression including cancer and infection, the risk of primary graft non- function, SGF, DGF, rejection, primary disease recurrence were also discussed. The patient demonstrated a full and adequate understanding and all questions were answered. The patient was informed that higher KDPI (>85%) kidneys may incur some small additional risks compared to an SCD (or KDPI below 85%) kidney and those risks and benefits were also discussed. Assessment and Plan: Ms. Kurtz presents today for consideration of potential SPK. She has had long standing DM with end organ damage but seems to be very functional. She will need: 1) Cpeptide and HbA1c. 2) Will need endocrine evaluation for hormonal work up. This should not be a a barrier to kidney transplant but will need further evaluation and recommendations from endocrine. 3) Repeat breast mammogram needs to be done as she had a small cyst on ultrasound. No potential LDs at this time, but this was discussed in detail with her and the advantages of LDs were also discussed with her. Once all testing has been completed then the patient will be discussed in our Multidisciplinary Committee Selection Meeting before a final decision is made. The patient will be contacted by the pre-event coordinator marketing and sales with the final decision Thank you for this opportunity in allowing us to participate in the care of your patient. Sincerely, Milly Stewart MD CC: Ashwin Quintero Claire Santamaria - 03/04/2017 9:48 AM CDT SOCIAL WORK PSYCHOSOCIAL ASSESSMENT Name: [facility] #: [id number] Date: 03/04/2017 Referral Source: Renal Transplant Team Date Referred: 03/04/2017 Source of Information: Patient and girlfriend Patient's Address: [address] [address] Telephone #: [phone] (home) 1. PRESENT SITUATION: Sex: female Age: 41 y.o. Birthdate: 1975 Primary Language: Iranian Ethinic Background: Scientology: (Optional) Admitting Diagnosis: ESRD Statement of Presenting Problem(s): Patient is a 41 y/o female who presents for evaluation for an SPK transplant and was accompanied by her girlfriend, Yvette. She has started the evaluation process at [facility], but came to [facility] to pursue an SPK transplant. She reports she has known of her ESRD since May 03 2016 and it was caused by DM and HTN. Patient has been on HD since 05/03/16 on MWF at [facility]. She reports good adherence with dialysis and attending medical appointments. She keeps track of appointments on a calendar and typically attends them with Yvette. Patient sometimes drives herself to dialysis and appointments but lately has been having difficulty with her eye sight and Yvette has been assisting with transportation. She reports she has DM retinopathy and has been having edema in both eyes, has had injections and two recent surgeries on her eyes. Patient reports her only recent hospitalizations were two weeks ago and again two months ago, both at [facility], for surgeries on her eyes. Patient has been diagnosed with Type 1 DM for 29 years and uses insulin. She reports she checks her blood sugars 3-4x/day and her last A1c was 7.8. SW spoke with Ingris Singletary who reports patient is adherent with dialysis and medications. 2. PATIENT'S LIVING SITUATION PRIOR TO ADMISSION Citizenship: [place] citizen List of household members: With family: Girlfriend Comments: Patient lives in [place], [place] with her girlfriend, Yvette. Yvette's 16 y/o son is also in the home. They rent their home and have lived there x 2 months. There is one step to enter and it is all one level, inside. Patient is independent with ambulation and with ADL's and has never received any home health care services or had a stay in a SNF, rehab or LTACH. She was born and raised in [place], [place]. 3. 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 She has held this job x 18 years and works 8-5 pm, going to dialysis from 6-10 am every morning. Patient aware they will need to plan to take 6-12 week off from work, for recovery, post-transplant. She reports she has used FMLA with her eye surgeries and uses intermittent FMLA with HD, but is able to continue to use FMLA and paid leave at the time of transplant. Patient states her employer is aware she is pursuing transplant and supportive. She denies any concerns about her finances while she is off work for recovery, stating she has family that can help to support her. Patient has BCBS insurance through her employer and has Medicare (due to HD) as secondary. She receives AKF assistance with both her BCBS and Medicare insurance premiums and BOB discussed with her that this support will end at the time of transplant. Patient reports her BCBS premiums cost around $174/month and she was paying this premium prior to starting HD. She denies any concerns re: covering the cost of these premiums, post-transplant. BOB spoke with Ingris Howell to confirm AKF amounts and she reports AKF pays $58/month for patient' s BCBS premiums and $402/quarter for her Medicare premiums. Discussed with ABIDA Ferro that patient receives AKF assistance and relayed amounts of AKF assistance via staff message. Per ABIDA Ferro, patient was given a financial assessment based on all of her financial liabilities. Patient verbalizes understanding of the limitations of Medicare (36 months post transplant, barring on-going SSDI eligibility) and of SSDI (limited to as little as one year post-transplant barring on-going disability) after a successful transplant. Patient fills medications at [facility] pharmacy and pays $0 in co-pays, stating he has met her [id number]. She denies any financial barriers to obtaining the medications she is prescribed or going without medications. She is not receiving any sources of financial assistance with daily living expenses. 4. SUPPORTIVE RELATIONSHIPS/ COMMUNITY RESOURCES Caregivers: GirlfriendYvette, FatherLucio, Living Donors: Possibly some co-workers Comments: Patient has been in a relationship with her girlfriend Yvette x 1.5 years. She reports she has never been legally . She has no children and a sister and father both live in [place]. Patient's mother and brother are . She reports she has some co-workers who have mentioned being living donors for her. Patient voiced understanding of the weekly to bi-weekly [facility] clinic appointments for the first few months following transplant and annual visits thereafter. SW discussed the requirement to stay locally for eight weeks post SPK transplant d/c and provided patient with the area lodging list and with the [facility] fundraising brochures. Patient states she has family that live locally that she could stay with and her girlfriend reports she would plan to stay locally with her, the entire time she is required to stay locally. She verbalized understanding of the need to have a caregiver to assist with care and transportation post-transplant. She also acknowledged that she would not be able to drive for 2-4 weeks, post-transplant. Patient's caregiver post- transplant will be her girlfriend, Yvette. She reports her father would also be available and is retired. Yvette confirms she would be able to take time off from work to assist patient and is able to assist with transportation. She will drive patient to the hospital when she is called for transplant. 5. COGNITIVE ABILITIES Highest Level of Education: Some college Comments: Patient hopes to continue living her life the same way she is now, post-transplant. She denies any worries or concerns about transplant. Patient denies having any history of medication non-compliance and uses a pill box. She voiced understanding of the need to take immunosuppressive medications for the life of the transplant. Patient denies current or past abuse of etoh or illicit drugs. She reports she used to drink etoh socially, but now drinks about 2x/year. Patient reports using tobacco x 18 years, but quit 05/03/15, when she was diagnosed with ESRD. Patient denies having any history of mental illness, psychiatric treatment and denies suicidal ideation. She denies current or past legal issues. Patient does not have a DPOA-HC or Advanced Directive in place at this time and SW provided her with these forms. 6. SOCIAL WORK EVALUATION Comments: SW met with patient and her girlfriend as part of her evaluation for SPK transplant. She has health insurance coverage through [employer] and Medicare to meet her medical needs following transplant. She receives support from her girlfriend who will serve as her primary caregiver post transplant. Patient has reasonable expectations for the transplant process. She has no reported history of tobacco use and denies abuse of drugs and alcohol. She has no reported history of mental health concerns and appears to be coping normally at this time. Patient is receiving AKF assistance with both of her insurance premiums and SW recommends she complete a financial assessment to ensure she can afford the cost of her premiums, post-transplant. Otherwise, this SW did not identify any psychosocial barriers for listing. Patient has a masculine physical appearance and SW clarified with patient that she not only identifies as female, but was born of the female gender. Will discuss with the multi- disciplinary team. * SW reviewed with patient the Transplantation Patient Responsibilities form, provided patient a copy and completed with patient. 7. PLAN Plan Discussed with Patient / Family: Yes Plan Agreed Upon with Patient / Family: Yes Claire Farmer [facility] Photogrammetry Airplane Pilot Pager: [phone] in this encounter Plan of Treatment Name Priority Associated Diagnoses Order Schedule 2-D + DOPPLER ECHOCARDIOGRAM Routine Pre-transplant evaluation Expected : 03/04/2017, for end stage renal Expires: 03/04/2018 disease REGADENOSON THALLIUM MPI STRESS TEST Routine Pre-transplant evaluation Expected: 03/04/2017, for end stage renal Expires: 03/04/2018 disease Name Priority Associated Diagnoses Order Schedule AMB REFERRAL TO CARDIOLOGY Routine Pre-transplant evaluation Ordered: for end stage renal disease AMB REFERRAL TO ENDOCRINOLOGY Routine Pre-transplant evaluation Ordered : 03/04/2017 for end stage renal disease as of this encounter Results * BLOOD TYPE CONFIRMATION - ORDER ONLY IF REQUESTED BY LAB (03/04/2017 1:02 PM) Component Value Ref Range ABO/RH(D) A POS Specimen Performing Laboratory Blood [facility] [address] [place] [address] * LAVENDER (EDTA) TOP TUBE FOR MTN [...] (PCP) 25 NG/ML Specimen Performing Laboratory Urine [facility] [address] [place] [address] 12093 * OPIATES-URINE RANDOM (03/04/2017 12:48 PM) Component Value Ref Range Opiates-Urine NEG NEG-NEG Comment: RESULTS WERE OBTAINED BY IMMUNOASSAY AND ARE PRESUMPTIVE ONLY. POSITIVE INDICATES THE PRESENCE OF SUBSTANCE WITH CHARACTERISTICS SIMILAR TO DRUG-DRUG CLASS OR METABOLITE IN CONC. EQUAL TO OR EXCEEDING VALUES LISTED. OPIATES 200 0 NG/ML Specimen Performing Laboratory Urine [facility] [address] [place] [address]851 * COCAINE-URINE RANDOM (03/04/2017 12:48 PM) Component Value Ref Range Cocaine-Urine NEG NEG-NEG Comment: RESULTS WERE OBTAINED BY IMMUNOASSAY AND ARE PRESUMPTIVE ONLY. POSITIVE INDICATES THE PRESENCE OF SUBSTANCE WITH CHARACTERISTICS SIMILAR TO DRUG-DRUG CLASS OR METABOLITE IN CONC. EQUAL TO OR EXCEEDING VALUES LISTED. COCAINE 300 NG/ML Specimen Performing Laboratory Urine [facility] [address] [place] [address]76 * CANNABINOIDS-URINE RANDOM (03/04/2017 12:48 PM) Component Value Ref Range THC NEG NEG-NEG Comment: RESULTS WERE OBTAINED BY IMMUNOASSAY AND ARE PRESUMPTIVE ONLY. POSITIVE INDICATES THE PRESENCE OF SUBSTANCE WITH CHARACTERISTICS SIMILAR TO DRUG-DRUG CLASS OR METABOLITE IN CONC. EQUAL TO OR EXCEEDING VALUES LISTED. CANNABINOIDS 50 NG/ML Specimen Performing Laboratory Urine [facility] [address] [place] [address] * BENZODIAZEPINES-URINE RANDOM (03/04/2017 12:48 PM) Component Value Ref Range Benzodiazepines NEG NEG-NEG Comment: RESULTS WERE OBTAINED BY IMMUNOASSAY AND ARE PRESUMPTIVE ONLY. POSITIVE INDICATES THE PRESENCE OF SUBSTANCE WITH CHARACTERISTICS SIMILAR TO DRUG-DRUG CLASS OR METABOLITE IN CONC. EQUAL TO OR EXCEEDING VALUES LISTED. BENZODIAZEPINES 200 NG/ML Specimen Performing Laboratory Urine [facility] [address] [place] [address] * BARBITURATES-URINE RANDOM (03/04/2017 12:48 PM) Component Value Ref Range Barbiturates,Urine NEG NEG-NEG Comment: RESULTS WERE OBTAINED BY IMMUNOASSAY AND ARE PRESUMPTIVE ONLY. POSITIVE INDICATES THE PRESENCE OF SUBSTANCE WITH CHARACTERISTICS SIMILAR TO DRUG-DRUG CLASS OR METABOLITE IN CONC. EQUAL TO OR EXCEEDING VALUES LISTED. BARBITURATES 200 NG/ML Specimen Performing Laboratory Urine [facility] [address] [place] [address] 10702 * AMPHETAMINES-URINE RANDOM (03/04/2017 12:48 PM) Component Value Ref Range Amphetamines NEG NEG-NEG Comment: RESULTS WERE OBTAINED BY IMMUNOASSAY AND ARE PRESUMPTIVE ONLY. POSITIVE INDICATES THE PRESENCE OF SUBSTANCE WITH CHARACTERISTICS SIMILAR TO DRUG-DRUG CLASS OR METABOLITE IN CONC. EQUAL TO OR EXCEEDING VALUES LISTED. AMPHETAMINES 1000 NG/ML Specimen Performing Laboratory Urine [facility] [address] [place] [address]361 * HEMOGLOBIN A1C (03/04/2017 12:48 PM) Component Value Ref Range Hemoglobin A1C 7.2 (H) 4.0 - 6.0 % Comment: The ADA recommends that most patients with type 1 and type 2 diabetes maintain an A1c level <7%. Specimen Performing Laboratory Blood [facility] [address] [place] [address] * C-PEPTIDE (03/04/2017 12:48 PM) Component Value Ref Range C-Peptide 0.5 (L) Comment: Reference range: 1.1 to 4.4 Unit: ng/mL [facility], [address] [place] [address] Specimen Performing Laboratory Blood REFERENCE LAB * URINALYSIS, MICROSCOPIC (03/04/2017 12:48 PM) Component Value Ref Range WBCs,UA 2-10 0 - 2 /HPF RBCs,UA 0-2 0 - 3 /HPF MucousUA TRACE Bacteria,UA FEW (A) NEG-NEG Squamous Epithelial Cells 10-20 0 - 5 Hyaline Cast 5-10 Specimen Performing Laboratory Urine [facility] [address] [place] [address] 05581 * URINALYSIS DIPSTICK (03/04/2017 12:48 PM) Component Value Ref Range Color,UA YELLOW Turbidity,UA 1+ (A) CLEAR-CLEAR Specific [place]-Urine 1.019 1.003 - 1.035 pH,UA 6.0 5.0 - 8.0 Protein,UA 3+ (A) NEG-NEG Glucose,UA 1+ (A) NEG-NEG Ketones,UA NEG NEG-NEG Bilirubin,UA NEG NEG-NEG Blood,UA NEG NEG-NEG Urobilinogen,UA NORMAL NORM-NORMAL Nitrite,UA NEG NEG-NEG Leukocytes,UA TRACE (A) NEG-NEG Urine Ascorbic Acid, UA NEG NEG-NEG Specimen Performing Laboratory Urine [facility] [address] [place] [address] 84034 * SYPHILIS AB SCREEN (03/04/2017 12:48 PM) Component Value Ref Range Syphilis AB, Total NEG NEG-NEG Comment: Negative EIA: Negative results indicate no past or present syphilis infection. Early infection can not be excluded. Specimen Performing Laboratory Blood [facility] [address] [place] [address]250 * PROTIME INR (PT) (03/04/2017 12:48 PM) Component Value Ref Range INR 1.0 0.8 - 1.2 Specimen Performing Laboratory Blood [facility] [address] [place] [address] 64172 * PHOSPHORUS (03/04/2017 12:48 PM) Component Value Ref Range Phosphorus 3.6 2.0 - 4.0 MG/DL Specimen Performing Laboratory Blood [facility] [address] [place] [address] 38053 * HSV I/II GLYCOPROTEIN G AB (03/04/2017 12:48 PM) Component Value Ref Range HSV Type 1 IgG POS (A) NEG-NEG HSV Type 2 IgG EQUIVOCAL, PLEASE SUBMIT ANOTHER SPECIMEN IN 4-6 NEG-NEG WEEKS (A) Specimen Performing Laboratory Blood [facility] [address] [place] [address] 51221 * HIV AB SCREEN(1 AND 2) (03/04/2017 12:48 PM) Component Value Ref Range HIV 1 and 2 AG AB Screen NEG NEG-NEG Specimen Performing Laboratory Blood [address] [address] * HEPATITIS C AB (03/04/2017 12:48 PM) Component Value Ref Range Anti HCV NEG Specimen Performing Laboratory Blood [facility] [address] [place] [address] 9[address]19 * HEPATITIS B SURFACE AG (03/04/2017 12:48 PM) Component Value Ref Range HBsAg NEG Specimen Performing Laboratory Blood [facility] [address] [place] [address]3519 * HEPATITIS B SURFACE AB (03/04/2017 12:48 PM) Component Value Ref Range Anti HBs >1000.0 mIU/ml Comment: Hepatitis B Surface Antibody Reference Ranges >12.0 Positive 8.0-12.0 Equivocal <8.0 Negative Specimen Performing Laboratory Blood [facility] [address] [place] [address] 31951 * HEPATITIS B CORE AB TOT (IGG+IGM) (03/04/2017 12:48 PM) Component Value Ref Range Anti HBc Total NEG Specimen Performing Laboratory Blood [facility] [address] [place] [address] 52716 * ROLAND TURCIOS PANEL(EBV) (03/04/2017 12:48 PM) Component Value Ref Range EBV Capsid IgG POS EBV Nuclear Ag,Ab POS EBV Early Ag,Ab NEG EBV Capsid IgM NEG Specimen Performing Laboratory Blood [facility] [address] [place] [address] 01761 * COMPREHENSIVE METABOLIC PANEL (03/04/2017 12:48 PM) [...] questions. Specimen Performing Laboratory Blood [facility] [address] [place] [address] 55124 * CMV AB IGM (03/04/2017 12:48 PM) Component Value Ref Range CMV, IgM NEG Specimen Performing Laboratory Blood [facility] [address] [place] [address]854 * CMV AB IGG (03/04/2017 12:48 PM) Component Value Ref Range CMV, IgG POS Specimen Performing Laboratory Blood MAIN [facility] [address] [place] [address] * CBC AND DIFF (03/04/2017 12:48 PM) [...] K/UL Specimen Performing Laboratory Blood [facility] [address] [place] [address] * ABO/RH(D) (03/04/2017 12:48 PM) Component Value Ref Range ABO/RH(D) A POS Specimen Performing Laboratory Blood [facility]IN [facility] [address] [place] [address], [place] [address] in this encounter Visit Diagnoses Diagnosis Pre-transplant evaluation for end stage renal disease - Primary Other specified pre-operative examination Pre-kidney transplant, listed Screening for human immunodeficiency virus Special screening examination for other specified viral diseases 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
--- OUTSIDE RECORDS SUMMARY | 2017-05-15 13:20 | XMS REPORT | Continuity of Care Document ---
Author Author [facility] Organization [facility] Address Unknown Phone Unavailable Allergies Active [...] MAMMOGRAM FOR MALIGNANT NE 11/19/2016 EDGAR BLEVINS MD, Ot Z12.31 ENCNTR SCREEN MAMMOGRAM FOR MALIGNANT NE 11/21/2016 EDGAR BLEVINS MD Ot Z12.31 ENCNTR SCREEN MAMMOGRAM FOR MALIGNANT NE 11/21/2016 EDGAR BLEVINS MD, Ot Z12.31 ENCNTR SCREEN MAMMOGRAM FOR MALIGNANT NE 11/21/2016 EDGAR BLEVINS MD, Ot Z12.31 ENCNTR SCREEN MAMMOGRAM FOR MALIGNANT NE 11/22/2016 EDGAR BLEVINS MD Ot Z12.31 ENCNTR SCREEN MAMMOGRAM FOR MALIGNANT NE 11/28/2016 EDGAR BLEVINS MD Ot R92.8 OTH ABN AND INCONCLUSIVE FINDINGS ON DX 11/29/2016 EDGAR BLEVINS MD Ot R92.8 OTH ABN AND INCONCLUSIVE FINDINGS ON DX 11/29/2016 EDGAR BLEVINS MD Ot R92.8 OTH ABN AND INCONCLUSIVE FINDINGS ON DX 11/29/2016 EDGAR BLEVINS MD Ot R92.8 OTH ABN AND INCONCLUSIVE FINDINGS ON DX 11/29/2016 EDGAR BLEVINS MD Ot R92.8 OTH ABN AND INCONCLUSIVE FINDINGS ON DX 12/05/2016 EDGAR BLEVINS MD Ot Z12.31 ENCNTR SCREEN MAMMOGRAM FOR MALIGNANT NE 12/24/2016 EDGAR BLEVINS MD Ot R92.8 OTH ABN AND INCONCLUSIVE FINDINGS ON DX 04/07/2017 EDGAR BLEVINS MD Ot Z12.31 ENCNTR SCREEN MAMMOGRAM FOR MALIGNANT NE 04/07/2017 EDGAR BLEVINS MD Ot R92.8 OTH ABN AND INCONCLUSIVE FINDINGS ON DX 04/14/2017 DARLINE MEDEIROS MD Ot D63.8 ANEMIA IN OTHER CHRONIC DISEASES CLASSIF 04/14/2017 DARLINE MEDEIROS MD Ot E78.2 MIXED HYPERLIPIDEMIA 04/14/2017 DARLINE MEDEIROS MD Ot I12.0 HYP CHR KIDNEY DISEASE W STAGE 5 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 04/14/2017 DARLINE MEDEIROS MD J Ot N18.6 END STAGE RENAL DISEASE 04/14/2017 DARLINE MEDEIROS MD Ot D63.8 ANEMIA IN OTHER CHRONIC DISEASES CLASSIF 04/14/2017 DARLINE MEDEIROS MD J Ot E78.2 MIXED HYPERLIPIDEMIA 04/14/2017 DARLINE MEDEIROS MD J Ot I12.0 HYP CHR KIDNEY DISEASE W STAGE 5 CHR KID 04/14/2017 DARLINE MEDEIROS MD J Ot N18.6 END STAGE RENAL DISEASE 04/14/2017 DARLINE MEDEIROS MD Ot D63.8 ANEMIA IN OTHER CHRONIC DISEASES CLASSIF 04/14/2017 DARLINE MEDEIROS MD Ot E78.2 MIXED HYPERLIPIDEMIA 04/14/2017 DARLINE MEDEIROS MD J Ot I12.0 HYP CHR KIDNEY DISEASE W STAGE 5 CHR KID 04/14/2017 DARLINE MEDEIROS MD J Ot N18.6 END STAGE RENAL DISEASE 04/16/2017 DARLINE MEDEIROS MD Ot D63.8 ANEMIA IN OTHER CHRONIC DISEASES CLASSIF 04/16/2017 DARLINE MEDEIROS MD Ot E78.2 MIXED HYPERLIPIDEMIA 04/16/2017 DARLINE MEDEIROS MD J Ot I12.0 HYP CHR KIDNEY DISEASE W STAGE 5 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 04/16/2017 DARLINE MEDEIROS MD J Ot N18.6 END STAGE RENAL DISEASE 04/16/2017 DARLINE MEDEIROS MD J Ot D63.8 ANEMIA IN OTHER CHRONIC DISEASES CLASSIF 04/16/2017 DARLINE MEDEIROS MD Ot E78.2 MIXED HYPERLIPIDEMIA 04/16/2017 DARLINE MEDEIROS MD Ot 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 Visit Date/Time Discharge Status Pt. Type Provider Facility Loc./Unit Complaint [id number] 04/29/2017 11:34:00 2016 23:59:59 CLS Outpatient LUCY THOMPSON MD [facility] CARD V72.83 [id number] 04/08/2017 08:49:00 2016 23:59:59 CLS Outpatient DARLINE MEDEIROS MD [facility] CARD ESRD N18.6,HTN I10 [id number] 03/26/2017 08:17:00 2016 23:59:59 CLS Preadmit DARLINE MEDEIROS MD [facility] CARD ESRD N18.6, HTN I10 [id number] 11/28/2016 07:47:00 2016 23:59:59 CLS Outpatient EDGAR BLEVINS MD [facility] RAD ABNORMAL MAMMO [id number] 11/15/2016 15:10:00 2016 23:59:59 CLS Outpatient EDGAR BLEVINS MD [facility] RAD SCREENING [id number] 07/15/2014 21:02:00 2013 22:30:00 DIS Emergency IRWIN HILARIO APRN [facility] ER LOW BLOOD SUGAR [id number] 08/15/2013 02:39:00 2012 03:52:00 DIS Emergency VIRIDIANA BLEVINS MD [facility] ER LOW BLOOD SUGAR [id number] 10/16/2010 05:38:00 Document Registration [id number] 10/15/2010 15:04:00 Document Registration [id number] 12/05/2009 10:47:00 Document Registration [id number] 11/27/2009 06:56:00 Document Registration [id number] 08/25/2009 07:05:00 Document Registration [id number] 05/08/2009 07:04:00 Document Registration
--- OUTSIDE RECORDS SUMMARY | 2017-05-15 13:20 | XMS REPORT | Encounter Summary ---
Author Author [facility] Organization [facility] Address Unknown Phone Unavailable Care Team Providers Care Ux Design Lead Name Role Phone PCP Unavailable Encounter Details Date Type Department Care Team Description 03/03/2017 Documentation [facility] for Melissa Kinsey Transplantation-Kidney/Pa ncreas Nep [address] [facility] [place], [place] [id number] Social History Tobacco Use Types Packs/Day Years Used Date Never Assessed Sex Assigned at Date Recorded Not on file as of this encounter Progress Notes * Melissa Kinsey - 03/03/2017 4:28 PM CDT Attempted to schedule CT PT will be a walk in in this encounter Plan of Treatment Not on fileas of this encounter Visit Diagnoses Not on filein this encounter
--- OUTSIDE RECORDS SUMMARY | 2017-05-15 13:20 | XMS REPORT | Encounter Summary ---
Author Author [facility] Organization [facility] Address Unknown Phone Unavailable Care Team Providers Care Bee Tender Name Role Phone PCP Unavailable Reason for Visit * Reason Comments Appointment Question Encounter Details Date Type Department Care Team Description 02/25/2017 Telephone [facility] for Helen Eastman MA Appointment Question Transplantation-Kidney/Pa ncreas [facility] [address] [facility] [place] [address] Social History Tobacco Use Types Packs/Day Years Used Date Never Assessed Sex Assigned at Date Recorded Not on file as of this encounter Plan of Treatment Not on fileas of this encounter Visit Diagnoses Not on filein this encounter
[2017-05-15 13:45] LABS: MEAN PLATELET VOLUME 10.3 FL (7.4-10.4); RED BLOOD COUNT 3.76 10^6/uL (4.35-5.85); WHITE BLOOD COUNT 6.8 10^3/uL (4.3-11.0)
[2017-05-15] MEDS ORDERED: NS IV 1000 ML 1,000 ML IV SCH ×2 (13:45→15:29)
[2017-05-15 13:56] LABS: INR 0.9 (0.8-1.4); PROTHROMBIN TIME PATIENT 12.4 SEC (12.2-14.7)
[2017-05-15 14:03] LABS: ALBUMIN 4.2 GM/DL (3.2-4.5); BILIRUBIN,TOTAL 0.7 MG/DL (0.1-1.0); CALCIUM 9.7 MG/DL (8.5-10.1); CREATININE SERUM 9.29 MG/DL (0.60-1.30); POTASSIUM 4.3 MMOL/L (3.6-5.0); TOTAL PROTEIN 8.2 GM/DL (6.4-8.2)
[2017-05-15] MEDS ORDERED: AMLO10TA2 PO (14:06)
[2017-05-15] MEDS ORDERED: METO-395 PO (14:06)
[2017-05-15] MEDS ORDERED: INSU100V6 SQ (14:07)
[2017-05-15] MEDS ORDERED: SEVE800T7 PO ×2 (14:11→14:13)
[2017-05-15] MEDS ORDERED: INSU100V16 SQ (14:11)
[2017-05-15] MEDS ORDERED: MIDAZOLAM 5 MG/5 ML (VERSED) VIAL ONE (14:22)
[2017-05-15] MEDS ORDERED: fentaNYL INJECTION 100 MCG/2 ML AMP ONE (14:22)
--- NOTE | 2017-05-15 14:38 | Diagnostic Imaging Report ---
INDICATION: Coronary artery disease and hypertension. EXAMINATION: PA chest obtained at 01:40 p.m. FINDINGS: Heart and mediastinal silhouette are normal in appearance. The lungs are clear. There is no pneumothorax or pleural fluid. IMPRESSION: Negative chest. Dictated by: Dictated on workstation # [id number]
[2017-05-15] MEDS ORDERED: PATIENT MAY USE OWN MEDS, ALL PO SCH (15:30)
--- NOTE | 2017-05-15 15:31 | Discharge Inst-Post CATH ---
Discharge Inst-CATH Post Cardiac Cath D/C Inst Follow Up/Plan Dialysis tomorrow morning Appointment with Dr. Hinton's office in 2-4 weeks CARDIAC CATH DISCHARGE INSTRUCTIONS *Hold Metformin for 48 hours post heart cath. ACTIVITY * Go Home directly and rest. * Limit activity of the leg (or wrist if it was used) for 7 days including aerobics, swimming, jogging, bicycling, etc. * Restrict stair-climbing for 7 days if possible, if not, climb up with your non -cath leg, then bring together on the same step. * Avoid lifting, pushing, pulling or excessive movement of the affected extremity for 7 days. * Customary sexual activity may be resumed after 2 days-use caution not to use a position that strains or causes pain to the affected extremity. * No driving for 24 hours. * NO SMOKING. * Avoid straining for bowel movements for 7 days. * Gentle walking on level ground is allowed. * Returning to work will depend on the type of procedure and the results. Your doctor will discuss this with you. CALL YOUR DOCTOR FOR ANY OF THE FOLLOWING: *If bleeding from the puncture site occurs- Apply gentle pressure to site with clean cloth and call your doctor or EMS. * If a knot or lump forms under the skin, increases in size, or causes pain. * If bruising appears to be worsening or moving further down your leg instead of disappearing. * Temperature above 101 F. CARE OF YOUR GROIN INCISION; * Bruising or purple discoloration of the skin near the puncture site is common. * You may shower only, no bathtub bathing for 5 days. Be careful to avoid slipping as your leg may feel stiff. * If a closure device was used on your femoral artery, please see the attached guide regarding care of the device and your leg. * REMOVE the dressing from your groin the next day after your procedure in the shower. CARE OF YOUR WRIST INCISION; * Bruising or purple discoloration of the skin near the puncture site is common. * You may shower. * DO NOT submerge wrist. * Remove dressing in 24 hours. DARLINE HINTON MD May 15, 2017 15:31
--- NOTE | 2017-05-15 15:35 | Cardiac Cath Report ---
Cardiac Cath Report Physician (s)/Station Superintendent (s) Physician DARLINE MEDEIROS MD Pre-Procedure Diagnosis Pre-Procedure Diagnosis: end-stage kidney disease Post-Procedure Note Procedure Start Date: May 15, 2017 Procedure Start Time: 15:00 Name of Procedure: left heart catheterization Findings/Procedure Note PROCEDURE NOTE: After explaining the procedure to the patient, all pros and cons were explained, all questions were answered. The patient signed the consent and then she was placed on the cardiac catheterization laboratory. The patient was placed on the cardiac catheterization laboratory. Groin was prepped SL fashion local anesthesia was used. Sheath placed in the artery. Jenny right and left catheter were used to access the coronary system. JR was used to access the left ventricular cavity. Left ventriculogram was not done At the end of the procedure the sheath was removed. Closure device was used FINDINGS: Hemodynamics LV 107/14 end-diastolic pressure 14 Aorta 106/63 mean of 83 ANATOMY: Left Main is free of obstructive disease Left Anterior is free of obstructive disease Left Circumflex is free of obstructive disease Right Coronory Artery is free of obstructive disease LV Gram was not done to limit exposure to contrast CONCLUSION: 1. No obstructive disease in the coronary system 2. Normal left ventricular end diastolic pressure DISCUSSION AND RECOMMENDATION: No significant obstructive disease and coronary system, no contraindication for kidney transplant by cardiology Anesthesia Type: Conscious Sedation Estimated blood loss (mL): 20 ml Contrast Amount: 20 ml Total Radiation Dose: 69 mGy Post-Procedure Diagnosis Post-operative diagnosis: end-stage kidney disease DARLINE MEDEIROS MD May 15, 2017 15:35
--- NOTE | 2017-05-15 15:36 | Clinic Account Progress/Dx ---
Clinic Account Progress/Dx DIAGNOSIS: Date Seen by Provider: May 15, 2017 Time Seen by Provider: 15:36 Diagnosis end-stage kidney disease DARLINE MEDEIROS MD May 15, 2017 3:36 pm
== END 2017-05-15 20:15 | disposition home or self-care (01) ==
LOC: CATH 13:12 → ICU 15:45 → CATH 20:15
PROVIDERS: ATTEND Physician Assistant
DX: Z01.810 Encounter for preprocedural cardiovascular examination (principal); N18.6 End stage renal disease; E11.22 Type 2 diabetes mellitus with diabetic chronic kidney disease; I12.0 Hypertensive chronic kidney disease with stage 5 chronic kidney disease or end stage renal disease; E78.2 Mixed hyperlipidemia; Z76.82 Awaiting organ transplant status; Z99.2 Dependence on renal dialysis; Z82.49 Family history of ischemic heart disease and other diseases of the circulatory system; Z79.4 Long term (current) use of insulin; Z79.899 Other long term (current) drug therapy
CPT/HCPCS: 36415; 71010; 80053; 85027; 85610; 85730; 87081; 93005; 93458

== ENCOUNTER → 2017-06-18 | Outpatient (CLI) | payer BC, MEDICARE ==
[~2017-06-18] MED LIST changes: +AMLO10TA2 PO; +INSU100V16 SQ; +METO-395 PO; +SEVE800T7 PO
--- NOTE | 2017-06-18 18:17 | Diagnostic Imaging Report ---
Left breast ultrasound. INDICATION: Follow-up lesion at 2 o'clock zone. FINDINGS: At 2 o'clock zone, 4 cm from the nipple there is a simple-appearing cyst measuring 5 mm in size with no solid component seen. IMPRESSION: Simple cyst at 2 o'clock zone 4 cm from the nipple with no significant change. Annual screening mammogram is recommended and would be due in October 2017. ACR BI-RADS Category 2: Benign findings. Dictated by: Dictated on workstation # [id number]
== END ==
LOC: RAD 14:19
PROVIDERS: ATTEND Internal Medicine
DX: N60.02 Solitary cyst of left breast (principal)
CPT/HCPCS: 76642

== ENCOUNTER → 2017-07-10 | Outpatient (CLI) | payer BC, MEDICARE ==
[~2017-07-10] MED LIST changes: +METO-274 PO; -METO-395 PO
--- NOTE | 2017-07-10 18:24 | Diagnostic Imaging Report ---
Transabdominal and transvaginal pelvic ultrasound. INDICATION: Irregular cycles. Increased testosterone. FINDINGS: The uterus is 5.2 x 3.6 x 2.8 cm. The endometrial stripe is 0.4 cm in thickness. The right ovary is 2.5 x 2.1 x 2.3 cm. The left ovary is 3.3 x 2.8 x 1.6 cm. Arterial and venous waveforms are seen over both ovaries with no focal mass or fluid collection. IMPRESSION: Unremarkable exam. Dictated by: Dictated on workstation # [id number]
[2017-07-11 08:02] LABS: SEX HORMONE BINDING GLOBULIN 29.5 nmol/L (27.8-146.0)
[2017-07-11 08:22] LABS: FSH 5.4 MIU/ML
== END ==
LOC: RAD 14:53
PROVIDERS: ATTEND Internal Medicine Endocrinology, Diabetes & Metabolism
DX: L68.0 Hirsutism (principal); N91.1 Secondary amenorrhea
CPT/HCPCS: 36415; 76830; 76856; 82670; 83001; 84270; 84403

== ENCOUNTER → 2017-10-15 | Outpatient (CLI) | payer OTHER, MEDICARE ==
[~2017-10-15] MED LIST changes: -METO-274 PO; +METO-395 PO
--- NOTE | 2017-10-15 19:28 | Diagnostic Imaging Report ---
INDICATION: Routine screening. COMPARISON: Comparison is made with prior exam from 11/15/2016. The current study was also evaluated with a Computer Aided Detection (CAD) system. FINDINGS: Mbfb-zj-rmsffhdy density is identified bilaterally. The parenchymal pattern appears to be stable. No dominant mass or malignant appearing microcalcifications are seen. The axillae are unremarkable. IMPRESSION: No mammographic features suspicious for malignancy are identified. ACR BI-RADS Category 1: Negative. Result letter will be mailed to the patient. Note: At least 10% of breast cancer is not imaged by mammography. Dictated by: Dictated on workstation # [id number]
== END ==
LOC: RAD 10:41
PROVIDERS: ATTEND Internal Medicine
DX: Z12.31 Encounter for screening mammogram for malignant neoplasm of breast (principal)
CPT/HCPCS: 77067

== ENCOUNTER → 2018-07-22 | Outpatient (CLI) | payer OTHER, MEDICARE ==
[~2018-07-22] MED LIST changes: -AMLO10TA2 PO; +AMLO10TA6 PO
== END ==
LOC: CARD 12:29
PROVIDERS: ATTEND Physician Assistant
DX: E11.22 Type 2 diabetes mellitus with diabetic chronic kidney disease (principal); I12.0 Hypertensive chronic kidney disease with stage 5 chronic kidney disease or end stage renal disease; N18.6 End stage renal disease; E78.2 Mixed hyperlipidemia
CPT/HCPCS: 93306

== ENCOUNTER → 2018-08-26 | Outpatient (CLI) | payer OTHER, MEDICARE ==
--- NOTE | 2018-08-26 10:23 | Diagnostic Imaging Report ---
PROCEDURE: US Thyroid. TECHNIQUE: Multiple real-time grayscale images were obtained of the thyroid in various projections. INDICATION: Thyroid nodule. The left lobe of thyroid measures 6.2 x 3.3 x 3.6 cm. The majority of the left lobe is occupied by a large solid mass measuring 4.4 x 3.2 x 3.6 cm. No definite microcalcifications are present. The right lobe measures 5.0 x 1.6 x 1.3 cm. Right lobe shows homogeneous echotexture and is without evidence of discrete mass. Isthmus is 4 mm in thickness. IMPRESSION: Large solid mass left lobe of the thyroid. Tissue sampling could be performed. Dictated by: Dictated on workstation # [id number]
== END ==
LOC: RAD 07:28
PROVIDERS: ATTEND Internal Medicine Endocrinology, Diabetes & Metabolism
DX: E04.1 Nontoxic single thyroid nodule (principal)
CPT/HCPCS: 76536

== ENCOUNTER → 2019-02-04 | Outpatient (CLI) | payer OTHER, MEDICARE ==
[~2019-02-04] MED LIST changes: -AMLO10TA6 PO; +AMLO10TA7 PO
== END ==
LOC: LABNPT 15:04
PROVIDERS: ATTEND Specialist
DX: L98.9 Disorder of the skin and subcutaneous tissue, unspecified (principal)
CPT/HCPCS: 87101

== ENCOUNTER → 2019-09-02 | Outpatient (CLI) | payer OTHER, MEDICARE ==
--- NOTE | 2019-09-02 09:40 | Diagnostic Imaging Report ---
CLINICAL INDICATIONS: Follow-up thyroid nodule. COMPARISONS: Thyroid ultrasound dated 08/26/2018. FINDINGS: THYROID NODULES: There is a 5.3 cm x 3.3 cm x 4.4 cm heterogeneous mixed iso and hyperechoic nodule involving the mid lower portions of the left thyroid lobe. There is central Doppler flow seen. There is no other thyroid nodule seen. THYROID GLAND: Besides the thyroid nodule, the thyroid gland has normal size, shape and echogenicity. The right lobe measures 4.6 cm x 1.7 cm x 1.6 cm and the left lobe measures 6.7 cm x 3.7 cm x 4.6 cm in their three dimensions. ISTHMUS: The isthmus is unremarkable and measures 5 mm in thickness. IMPRESSION: 1: There is a 5.3 cm heterogeneous nodule involving the mid to inferior portion of the left thyroid lobe. Fine-needle aspiration is suggested for further evaluation. 2: Otherwise, the thyroid gland is unremarkable. Dictated by: Dictated on workstation # [id number]
== END ==
LOC: RAD 07:52
PROVIDERS: ATTEND Internal Medicine Endocrinology, Diabetes & Metabolism
DX: E04.1 Nontoxic single thyroid nodule (principal)
CPT/HCPCS: 76536

== ENCOUNTER → 2020-06-01 | Outpatient (CLI) | payer OTHER, MEDICARE ==
[~2020-06-01] MED LIST changes: -METO-395 PO; +MTP100TCR PO
--- NOTE | 2020-06-01 12:28 | Diagnostic Imaging Report ---
PROCEDURE: US Thyroid. TECHNIQUE: Multiple real-time grayscale images were obtained of the thyroid in various projections. INDICATION: Left thyroid nodule. Correlation is made with prior ultrasound from 09/02/2019. FINDINGS: Right lobe of thyroid measures 4.7 x 1.7 x 0.9 cm and left lobe measures 6.5 x 3.8 x 3.7 cm. Isthmus is 4 mm in thickness. There is a tiny cyst in lower pole right lobe of thyroid approximately 2 mm in size. The dominant solid mass involving the left lobe of the thyroid is again noted. This measures approximately 5.9 x 3.9 x 3.8 cm. This compared to 5.3 x 3.3 x 4.4 cm on prior. IMPRESSION: Large solid mass left lobe of thyroid is again noted and perhaps slightly larger when compared with prior study from 09/02/2019. Fine-needle aspiration could be performed. Dictated by: Dictated on workstation # [id number]
== END ==
LOC: RAD 10:35
PROVIDERS: ATTEND Internal Medicine Endocrinology, Diabetes & Metabolism
DX: E04.1 Nontoxic single thyroid nodule (principal)
CPT/HCPCS: 76536

== ENCOUNTER → 2020-12-15 | Outpatient (CLI) | payer MEDICARE, OTHER ==
[~2020-12-15] MED LIST changes: +AMLO-251 PO; -AMLO10TA7 PO
--- NOTE | 2020-12-15 16:19 | Diagnostic Imaging Report ---
PROCEDURE: US thyroid. TECHNIQUE: Multiple real-time grayscale images were obtained of the thyroid in various projections. INDICATION: Follow-up of solid thyroid mass in the left lobe. COMPARISON: 06/01/2020 exam. FINDINGS: The left lobe measures 7.0 x 4.0 x 3.8 cm. There is a solid heterogeneous mass within the left lobe involving approximately 80% of the lobe. This does appear to be relatively well circumscribed. This shows isoechoic and hypoechoic scattered features. The mass has increased slightly in size, today measuring 6.3 x 4.7 x 3.7 cm. The right lobe measures 3.0 x 1.2 x 1.2 cm. There is a small hypoechoic lesion inferiorly measuring 3 mm. The isthmus is mildly thickened at 8 mm. No significant hypervascularity demonstrated. IMPRESSION: Heterogeneous solid mass with hypoechoic components which is well-circumscribed in the left lobe. This has continued to increase in size. Maximal diameter now is 6.3 cm. Would consider ultrasound-guided biopsy. TI-RADS 4 Dictated by: Dictated on workstation # [id number]
== END ==
LOC: RAD 12:00
PROVIDERS: ATTEND Internal Medicine Endocrinology, Diabetes & Metabolism
DX: E04.1 Nontoxic single thyroid nodule (principal)
CPT/HCPCS: 76536

== ENCOUNTER → 2021-08-08 | Outpatient (CLI) | payer OTHER ==
--- NOTE | 2021-08-08 11:51 | Diagnostic Imaging Report ---
Indication: Routine screening. Comparison is made with prior mammogram 10/15/2017 and 11/15/2016. 2-D and 3-D bilateral screening mammography was performed with CAD. Scattered fibroglandular densities are identified bilaterally. There is a nodular density in the outer left breast. This appears new since prior exam. This is best seen on the CC view. This appears to be superiorly located on the MLO view. Additional views are recommended for further evaluation. No other masses are identified. No malignant-appearing microcalcifications are seen. Axillae are unremarkable. IMPRESSION: BI-RADS 0 Left breast nodular density. Additional views are recommended for further evaluation. ACR BI-RADS Category 0: Incomplete. (Needs additional imaging evaluation). Result letter will be mailed to the patient. Note: At least 10% of breast cancer is not imaged by mammography. Dictated by: Dictated on workstation # [id number]
== END ==
LOC: RAD 11:15
PROVIDERS: ATTEND Nurse Practitioner Family
DX: Z12.31 Encounter for screening mammogram for malignant neoplasm of breast (principal); R92.8 Other abnormal and inconclusive findings on diagnostic imaging of breast
CPT/HCPCS: 77063; 77067

== ENCOUNTER → 2021-08-23 | Outpatient (CLI) | payer OTHER ==
--- NOTE | 2021-08-23 11:25 | Diagnostic Imaging Report ---
INDICATION: Left breast density. CORRELATION is made with the diagnostic mammogram earlier this same day and screening mammogram from 08/08/2021. Sonographic interrogation of the upper outer left breast was performed. There is a simple cyst at the 2:00 location of the left breast, 10 cm from the nipple, measuring 5 mm x 4 mm x 4 mm. No internal vascularity is identified. This does correspond with the density noted mammographically. No solid masses are detected. IMPRESSION: BI-RADS Category 2 Simple cyst at the 2:00 location left breast, 10 cm from the nipple, corresponding with the mammographic density. The patient may return to routine annual screening mammography. ACR BI-RADS Category 2: Benign findings. Result letter will be mailed to the patient. Note: At least 10% of breast cancer is not imaged by mammography. Dictated by: Dictated on workstation # [id number]
--- NOTE | 2021-08-23 16:06 | Diagnostic Imaging Report ---
Indication: Left breast density. Patient presents for additional views. Correlation is made with prior screening mammogram from 08/08/2021. Unilateral left 2-D and 3-D diagnostic mammography was performed with CAD. This includes spot compression CC and ML views as well as conventional 90 degree lateral views. Additional views show a persistent circumscribed nodular density in the upper outer left breast approximately 10 cm from the nipple. No other masses are seen. No suspicious microcalcifications are identified. IMPRESSION: BI-RADS 0 Persistent circumscribed density in the upper outer left breast 10 cm from the nipple. Further evaluation with ultrasound is recommended and will be performed today. ACR BI-RADS Category 0: Incomplete. (Needs additional imaging evaluation). Result letter will be mailed to the patient. Note: At least 10% of breast cancer is not imaged by mammography. Dictated by: Dictated on workstation # [id number]
== END ==
LOC: RAD 09:15
PROVIDERS: ATTEND Internal Medicine
DX: N60.02 Solitary cyst of left breast (principal)
CPT/HCPCS: 76642; 77065; G0279

== ENCOUNTER → 2022-08-30 | Outpatient (CLI) | payer OTHER ==
--- NOTE | 2022-08-30 11:49 | Diagnostic Imaging Report ---
Indication: Routine screening. Comparison is made with prior mammograms 08/08/2021 and 10/15/2017. 2-D and 3-D bilateral screening mammography was performed with CAD. Scattered fibroglandular densities are identified bilaterally. The parenchymal pattern is stable. No dominant mass or malignant-appearing microcalcifications are seen. Axillae are unremarkable. Tiny nodular density in the upper outer left breast is stable. IMPRESSION: BI-RADS Category 2 No mammographic features suspicious for malignancy are identified. ACR BI-RADS Category 2: Benign findings. Result letter will be mailed to the patient. Note: At least 10% of breast cancer is not imaged by mammography. Dictated by: Dictated on workstation # [id number]
== END ==
LOC: RAD 08:10
PROVIDERS: ATTEND Internal Medicine
DX: Z12.31 Encounter for screening mammogram for malignant neoplasm of breast (principal)
CPT/HCPCS: 77063; 77067

== ENCOUNTER → 2023-09-01 | Outpatient (CLI) | payer OTHER ==
[~2023-09-01] MED LIST changes: +SEVE800T50 PO; -SEVE800T7 PO
--- NOTE | 2023-09-01 15:57 | Diagnostic Imaging Report ---
INDICATION: Routine screening. COMPARISON: 08/30/2022 and 08/08/2021. TECHNIQUE: 2D and 3D bilateral screening mammography was performed with CAD. FINDINGS: Scattered fibroglandular densities are identified bilaterally. The parenchymal pattern is stable. No mass or malignant-appearing microcalcifications are identified. The axillae are unremarkable. IMPRESSION: No mammographic features suspicious for malignancy are identified. ACR BI-RADS Category 1: Negative. Result letter will be mailed to the patient. Note: At least 10% of breast cancer is not imaged by mammography. Dictated by: Dictated on workstation # [id number]
== END ==
LOC: RAD 08:30
PROVIDERS: ATTEND Internal Medicine
DX: Z12.31 Encounter for screening mammogram for malignant neoplasm of breast (principal)
CPT/HCPCS: 77063; 77067